=== PATIENT | male | born 1945 | race Caucasian/White ===

== ENCOUNTER 2022-03-30 21:41 | Emergency (ER) | payer MEDICARE, SELFPAY ==
[2022-03-30 22:01] VITALS: BP 143/87; PULSE 94; RESP 19; TEMP 36.8; O2SAT 96; BMI 28.5
--- NOTE | 2022-03-30 22:14 | W.ED.FALL ---
HPI - Fall General: Chief Complaint: Fall Stated Complaint: fall, right shoulder injury Time Seen by Provider: 03/30/22 22:09 Source: patient History of Present Illness: 76-year-old gentleman with multiple medical problems. He presents after a fall at home where he fell down 2-3 steps. He struck his right shoulder and his head he states. His head is hurting somewhat, and he has a history of headaches. He notes that his neck is hurting as well, but his most significant pain is his right shoulder. He says something is wrong or out of place he denies significant numbness or tingling. He notes that he felt pretty well prior to his fall. No syncope or presyncope prior to the episode. MD complaint: fall Onset (ago): minute(s) Fall from: standing and down stairs (#) (2-3) Fall witnessed: yes, by family Place fall occurred: home Loss of consciousness: None Prolonged down time: no Symptoms prior to fall: none Context: tripped/slipped Location of injury: head and neck Location of injury - extremities: Right: shoulder Quality: sharp, stabbing and aching Associated symptoms-after fall: Reports headache(s) and neck pain; Denies abdominal pain, chest pain, confusion, lightheadedness, short of breath or weakness Review of Systems Const: Denies: fever(s) Eyes: Denies: change in vision ENMT: Denies: throat pain Card: Denies: chest pain or lightheadedness Resp: Denies: dyspnea GI: Denies: abdominal pain Musc: Reports: neck pain Neuro: Reports: headache(s); Denies: confusion Physical Exam Const: COMMON NORMALS: no acute distress GENERAL APPEARANCE: cooperative and frail appearing (Mildly); not ill appearing HENMT: COMMON NORMALS: normocephalic, atraumatic and Normal external nose present HEAD & SCALP: normocephalic and atraumatic FACE & SINUS: normal facial exam and face symmetric NOSE: Normal external nose present Eye: COMMON NORMALS: Equal, round and reactive pupils present and EOMs intact bilaterally PUPIL: Yes Equal, round and reactive pupils present Neck/C-Spine: GENERAL: Yes trachea midline CERVICAL SPINE: Yes pain with cervical ROM Chest: CHEST: Yes Symmetrical chest wall rise Resp: COMMON NORMALS: normal respiratory effort, No retractions, No use of accessory muscles and clear to auscultation bilaterally AUSCULTATION: clear to auscultation bilaterally Cardio: COMMON NORMALS: regular rate and regular rhythm RATE: regular rate RHYTHM: regular rhythm GI: COMMON NORMALS: Normal to inspection, nondistended, normoactive bowel sounds present Extremity: NARRATIVE EXTREMITY EXAM: Exam the right shoulder reveals significant tenderness over the distal clavicle and anterior joint line. No significant deformity, although there is some swelling present. Pulses and sensation are intact distally. Neuro: KHUSHBOO COMA SCALE: document GCS findings [place] coma scale eye opening: Spontaneous [place] coma scale verbal response: Orientated [place] coma scale motor response: Obey commands [place]o coma scale total score: 15 SENSORY EXAM: Yes extremities (intact) Psych: COMMON NORMALS: speech normal SPEECH: Yes normal speech Skin: COMMON NORMALS: no rashes or lesions noted GENERAL SKIN EXAM: no rashes or lesions noted Course Vital Signs: Vital signs: Vital Signs Temperature 98.2 F 03/30/22 22:01 Pulse Rate 77 03/31/22 00:45 Respiratory Rate 16 03/31/22 00:45 Blood Pressure 161/99 03/31/22 00:45 Pulse Oximetry 93 03/31/22 00:45 Oxygen Delivery Me thod 03/30/22 22:01 MDM - Fall Medical Decision Making CTs are negative for acute injury. Shoulder x-ray shows an acute right distal clavicle fracture. He is placed in a sling. He is given pain control medication. 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 He was told to take his methadone first and he may take Percocet on top of this but only for severe pain. He was told to ice. Orthopedic follow-up. Case management has been consulted to hopefully make the gentleman appointment. Lab Data Radiology Impressions Cervical Spine CT 03/30/22 22:35 IMPRESSION: Negative for acute cervical spine injury. Head CT 03/30/22 22:35 IMPRESSION: Negative for acute intracranial abnormality. Shoulder X-Ray 03/30/22 22:35 IMPRESSION: Acute right distal clavicle fracture suspected. Discharge Plan Discharge Patient Disposition: Home Clinical Impression: Clavicle fracture Qualifiers: Encounter type: initial encounter Clavicle location: lateral end Fracture type: closed Fracture alignment: nondisplaced Laterality: right Qualified Code(s): S42.034A - Nondisplaced fracture of lateral end of right clavicle, initial encounter for closed fracture Condition: Stable Prescriptions: New Percocet 7.5-325 mg tablet 1 tab PO Q6H PRN (Reason: pain) Qty: 8 0RF Discharge Orders: Discharge ED (Routine); Ordered 03/31/22 Ordered By: Cheng Ho Referrals: Ekaterina Burns MD [Physician] - 4-7 days Taurus Causey DO [Primary Care Provider] - Patient Instructions: Clavicle Fracture (ED), Opioid Safety, Pain Management Activity Restrictions/Additional Instructions: Stay in sling until seen by orthopedics. Case management will help make a follow-up appointment for you. You should hear from them on Thursday or Thursday. Return for any problems. Use pain medication sparingly. Ice will help with pain as well. Coding Level of Care Code ED Securities Attorney for Juan C Lama
--- NOTE | 2022-03-30 22:35 | CTR_ITS ---
PROCEDURE INFORMATION: Exam: CT Head Without Contrast Exam date and time: 03/30/2022 11:26 PM Age: 76 years old Clinical indication: Injury or trauma; Fall; Blunt trauma (contusions or hematomas); Additional info: Fall hit head TECHNIQUE: Imaging protocol: Computed tomography of the head without contrast. Radiation optimization: All CT scans at this facility use at least one of these dose optimization techniques: automated exposure control; mA and/or kV adjustment per patient size (includes targeted exams where dose is matched to clinical indication); or iterative reconstruction. COMPARISON: CT head wo con* [id number] 08/17/2018 11:20 PM RADIATION DOSE METRICS: Total DLP (mGy-cm): 1052.58 FINDINGS: Brain: There is moderate cerebral atrophy. Negative for intracranial hemorrhage. Negative for intracranial mass.There is mild diffuse heterogeneity of the white matter attenuation, consistent with chronic white matter ischemic changes. Negative for midline shift of the brain. Cerebral ventricles: No ventriculomegaly. Paranasal sinuses: Visualized sinuses are unremarkable. No fluid levels. Mastoid air cells: Visualized mastoid air cells are well aerated. Bones/joints: Unremarkable. No acute fracture. Soft tissues: Unremarkable. CT/CT head wo con* [id number] IMPRESSION: Negative for acute intracranial abnormality.
--- NOTE | 2022-03-30 22:35 | CTR_ITS ---
PROCEDURE INFORMATION: Exam: CT Cervical Spine Without Contrast Exam date and time: 03/30/2022 11:32 PM Age: 76 years old Clinical indication: Injury or trauma; Fall; Blunt trauma; Additional info: Fall neck pain TECHNIQUE: Imaging protocol: Computed tomography of the cervical spine without contrast. Radiation optimization: All CT scans at this facility use at least one of these dose optimization techniques: automated exposure control; mA and/or kV adjustment per patient size (includes targeted exams where dose is matched to clinical indication); or iterative reconstruction. COMPARISON: CT head wo con* [id number] 03/30/2022 11:26 PM RADIATION DOSE METRICS: Total DLP (mGy-cm): 426.85 FINDINGS: Bones/joints: Negative for acute cervical spine fracture. Negative for traumatic malalignment. Fusion of C5-C6 vertebral bodies without complication. Severe disc disease of C6-C7. Diffuse facet joint arthropathy. Exaggerated cervical lordosis. Lungs: Lung apices are normal. Soft tissues: Unremarkable. CT/CT cervical spin wo con* [id number] IMPRESSION: Negative for acute cervical spine injury.
--- NOTE | 2022-03-30 22:35 | XRR_ITS ---
PROCEDURE INFORMATION: Exam: XR Right Shoulder Exam date and time: 03/30/2022 10:44 PM Age: 76 years old Clinical indication: Injury or trauma; Fall; Blunt trauma (contusions or hematomas); Shoulder; Right; Additional info: Fall R shoulder pain TECHNIQUE: Imaging protocol: Radiologic exam of the Right shoulder. Views: 2 or more views. COMPARISON: No relevant prior studies available. FINDINGS: Bones/joints: Fracture fragments on the undersurface of the distal right clavicle. Unremarkable acromioclavicular joint alignment. Osseous spurring of distal clavicle and acromion process. Right glenohumeral joint is unremarkable without dislocation. Soft tissues: Normal. XR/XR shoulder RT min 2V* [id number] IMPRESSION: Acute right distal clavicle fracture suspected.
[2022-03-30 23:56] VITALS: RESP 16; O2SAT 93
[2022-03-30] MEDS: ondansetron 4 MG Tablet PO (23:56)
[2022-03-30] MEDS: HYDROmorphone 1 mg/mL INJ 1 mL 2 MG IM (23:56)
[2022-03-31 00:04] VITALS: BP 167/82; PULSE 76; RESP 16; O2SAT 91
--- NOTE | 2022-03-31 00:25 | PC.NURSE ---
SLING APPLIED TO RIGHT SHOULDER PER PROVIDER ORDER.
[2022-03-31 00:45] VITALS: BP 161/99; PULSE 77; RESP 16; O2SAT 93
== END 2022-03-31 00:45 | disposition home or self-care (01) ==
PROVIDERS: Emergency Provider Emergency Medicine; PCP Internal Medicine
DX: S42.034A Nondisplaced fracture of lateral end of right clavicle, initial encounter for closed fracture (principal); W10.8XXA Fall (on) (from) other stairs and steps, initial encounter
CPT/HCPCS: 70450; 72125; 73030; 96372; 99285; J1170; Q0162

== ENCOUNTER → 2022-04-09 09:36 | Outpatient (BNVA) | payer MEDICARE, SELFPAY | PROVIDERS: PCP Internal Medicine; Visit Provider Nurse Practitioner Family | DX: W10.9XXA Fall (on) (from) unspecified stairs and steps, initial encounter (principal); S49.90XA Unspecified injury of shoulder and upper arm, unspecified arm, initial encounter; S42.034A Nondisplaced fracture of lateral end of right clavicle, initial encounter for closed fracture | CPT/HCPCS: 99214 ==

== ENCOUNTER 2024-04-19 00:31 | Observation (INO) | payer MEDICARE, SELFPAY ==
[2024-04-19] VITALS (23 sets, daily range): BP systolic 122–181; BP diastolic 43–104; PULSE 54–96; RESP 15–26; TEMP 36.4–36.9; O2SAT 1–100; BMI 26.4
--- NOTE | 2024-04-19 00:32 | XRR_ITS ---
PROCEDURE INFORMATION: Exam: XR Chest Exam date and time: 04/19/2024 1:06 AM Age: 78 years old Clinical indication: Shortness of breath; Prior surgery; Surgery date: 6+ months; Surgery type: Cspine TECHNIQUE: Imaging protocol: Radiologic exam of the chest. Views: 1 view. COMPARISON: CT cervical spin wo con* [id number] 03/30/2022 11:32 PM FINDINGS: Lungs: The lungs are hypoinflated which accentuates lung markings. Questionable mild pulmonary vascular congestion. Pleural spaces: Unremarkable. No pleural effusion. No pneumothorax. Heart/Mediastinum: The heart is enlarged. Diaphragm: Chronic elevation of the right diaphragm. Bones/joints: Unremarkable. XR/XR chest 1V portable [id number] IMPRESSION: Low lung volumes. Questionable mild pulmonary vascular congestion.
--- NOTE | 2024-04-19 00:33 | ECG_ITS ---
[facility] [employer] Test Date: 2024-04-19 Pat Name: Jonny Chino Department: Room: Gender: Male Anesthesiology Physician Assistant: : 1945 Requested By: Ginger Rivas Order Number: [id number] MD: Jim Sotomayor M.D. Measurements Intervals [place] Rate: 95 P: 35 NJ: 156 QRS: -50 QRSD: 118 T: 105 QT: 321 QTc: 405 Interpretive Statements SINUS RHYTHM LEFT AXIS DEVIATION [QRS AXIS < -30] PATTERN CONSISTENT WITH PULMONARY DISEASE MODERATE INTRAVENTRICULAR CONDUCTION DELAY [110+ ms QRS DURATION] MINIMAL VOLTAGE CRITERIA FOR LVH, CONSIDER NORMAL VARIANT [MEETS CRITERIA IN ONE OF: R(aVL), S(V1), R(V5), R(V5/V6)+S(V1)] ST DEVIATION AND MODERATE T-WAVE ABNORMALITY, CONSIDER LATERAL ISCHEMIA [-0.1+ mV T-WAVE IN I/aVL/V5/V6] No previous ECG available for comparison Electronically Signed On 04-19-2024 21:15:40 MULTIPLE LAUNCH ROCKET SYSTEM CREWMEMBER by Jim Sotomayor M.D. [email or web address]
--- NOTE | 2024-04-19 01:01 | ED_ITS ---
HPI - SOB/Dyspnea 2 General: Chief Complaint: Shortness of Breath/Dyspnea Stated Complaint: Low Oxygen Time Seen by Provider: 04/19/24 00:46 History of Present Illness: HPI Narrative: 78-year-old male with a history of hyper tension who presents emergency room with shortness of breath. Says has been feeling bad for about 3 days. He said he and his became ill after they went to a in another state. Congestion and cough initially. He says now become quite short of breath. Nursing reports that when walking down the [place] his oxygen saturations dropped down into the low 80s. He is placed on oxygen when I saw him he is 100% on 2 L. No wheeze on exam. Altered mental status. No focal motor deficits. No known fevers. No chest pain. No abdominal pain. No nausea or vomiting. No lower extremity swelling Related Data Previous Rx's Medication Instructions Recorded oxycodone-acetaminophen 7.5 mg-325 1 tab PO Q6H PRN pain #8 tabs 12/19/22 mg tablet (Percocet) Allergies Allergy/AdvReac Type Severity Reaction Status Date / Time Penicillins Allergy Unresponsiv Verified 04/19/24 00:44 e Review of Systems 2 Narrative: Constitutional symptoms: Negative except as documented in HPI. Skin symptoms: Negative except as documented in HPI. Eye symptoms: Negative except as documented in HPI. ENMT symptoms: Negative except as documented in HPI. Respiratory symptoms: Negative except as documented in HPI. Cardiovascular symptoms: Negative except as documented in HPI. Gastrointestinal symptoms: Negative except as documented in HPI. Genitourinary symptoms: Negative except as documented in HPI. Musculoskeletal symptoms: Negative except as documented in HPI. Neurologic symptoms: Negative except as documented in HPI. Psychiatric symptoms: Negative except as documented in HPI. Endocrine symptoms: Negative except as documented in HPI. Physical Exam 2 Narrative: EXAM NARRATIVE: General: Alert, no acute distress. Skin: Warm, dry. Head: Normocephalic, atraumatic. Neck: Supple, trachea midline. Eye: Extraocular movements are intact. Ears, nose, mouth and throat: mucosa moist. Cardiovascular: Regular, Normal peripheral perfusion. Respiratory: Lungs are clear to auscultation, mild tachypnea, mild increased work of breathing Gastrointestinal: Soft, Nontender, Non distended Musculoskeletal: Normal ROM, no deformity. Neurological: Alert and oriented, No focal neurological deficit observed. Psychiatric: Cooperative, appropriate mood & affect. Course 2 Vital Signs: Vital signs: Vital Signs Temperature 98.5 F 04/19/24 00:36 Pulse Rate 92 04/19/24 03:00 Respiratory Rate 17 04/19/24 03:00 Blood Pressure 164/71 04/19/24 03:00 Pulse Oximetry 91 04/19/24 03:00 Oxygen Delivery Me thod Nasal Cannula 04/19/24 03:00 Oxygen Flow Rate 1 04/19/24 03:00 MDM - SOB/Dyspnea Medical Decision Making Differential diagnosis for patient with shortness of breath includes but is not limited to and based on the above HPI, review of systems and physical exam: Pneumonia. Bronchitis. Asthma or COPD with acute exacerbation. Acute coronary syndrome / [place]. Pulmonary embolism. Anxiety. Congestive heart failure. Viral infections including influenza and Covid-19. Atrial fibrillation. Anxiety. Pleural effusion. Pneumothorax. Orders placed to evaluate differential diagnosis based on the above differential, HPI and physical exam EKG: Time 12:38 AM. Rate 95. Normal sinus rhythm, nonspecific ST-T changes, no ectopy, normal [place] & QRS intervals, This was reviewed and interpreted by myself the ER physician at 12:40 AM Lab Review: Laboratory results were reviewed and interpreted by myself the emergency room physician. No leukocytosis. No anemia. No renal failure. proBNP is mildly elevated 1000. No comparisons. Patient is COVID-positive. ABG 7.3 9/52/128 with a sat of 99% on 3 L nasal cannula. Chest x-ray: No acute process. No infiltrate. No pneumothorax. This was reviewed and interpreted by myself the emergency room physician. I also reviewed the radiology report. CT of the chest without contrast: No acute abnormalities. Interstitial lung changes. Coronary calcifications. This was reviewed and interpreted by myself the emergency room physician. I also reviewed the radiology report. I reviewed the patient's medical record. Reexamination: Patient continues to have hypoxemia if he is taken off of oxygen. No altered mental status. No focal motor deficits. Consultation: I spoke with Dr. Brock who is on-call for the hospitalist service who agrees to admission Assessment and plan: COVID-19 Hypoxemia ?IV Solu-Medrol and breathing treatments in the emergency room. -I discussed the patient with the hospitalist on-call who is admitting the patient. - Discussed findings and plan with patient. Answered any questions. - All laboratory values were reviewed and interpreted personally by myself, the ER physician - All imaging was reviewed and interpreted personally by myself, the ER physician. - Evaluation and treatment of this problem were appropriate in the emergency setting Lab Data 04/19/24 01:00 04/19/24 01:00 Labs/Radiology: Radiology Impressions Chest X-Ray 04/19/24 00:32 IMPRESSION: Low lung volumes. Questionable mild pulmonary vascular congestion. Chest CT 04/19/24 01:18 IMPRESSION: 1. No acute abnormality. 2. Chronic interstitial lung changes. 3. Atherosclerosis including coronary artery calcification. Laboratory Results WBC 7.35 10^3/uL (3.29-11.43) 04/19/24 01:00 RBC 3.98 10^6/uL (3.85-5.65) 04/19/24 01:00 Hgb 12.20 g/dL (11.27-16.99) 04/19/24 01:00 Hct 37.8 % (37-53) 04/19/24 01:00 MCV 95.0 fl (82-101) 04/19/24 01:00 MCH 30.7 pg (27-33) 04/19/24 01:00 MCHC 32.3 g/dL (30-55) 04/19/24 01:00 RDW 14.2 % (12.1-15.1) 04/19/24 01:00 Plt Count 160 10^3/cmm (157-399) 04/19/24 01:00 MPV 10.8 fL (7.4-10.4) H 04/19/24 01:00 Neut % (Auto) 78.0 % 04/19/24 01:00 Lymph % (Auto) 12.0 % 04/19/24 01:00 Jenkins % (Auto) 9.8 % 04/19/24 01:00 Eos % (Auto) 0.0 % 04/19/24 01:00 Baso % (Auto) 0.1 % 04/19/24 01:00 Neut # (Auto) 5.73 10^3/uL (1.8-7.7) 04/19/24 01:00 Lymph # (Auto) 0.9 10^3/uL (0.8-4.8) 04/19/24 01:00 Jenkins # (Auto) 0.7 10^3/uL (0.2-0.9) 04/19/24 01:00 Eos # (Auto) 0.0 10^3/uL (0.0-0.8) 04/19/24 01:00 Baso # (Auto) 0.0 10^3/uL (0.0-0.1) 04/19/24 01:00 Nucleated RBC % (auto) 0 % 04/19/24 01:00 Nucleated RBCs # 0.0 /100WBC 04/19/24 01:00 Specimen Type Arterial 04/19/24 01:42 Sample Site Brachial, right 04/19/24 01:42 ABG pH 7.39 (7.35-7.45) 04/19/24 01:42 ABG pCO2 51.7 mmHg (35-45) H 04/19/24 01:42 ABG pO2 128.0 mmHg (80.0-100.0) H 04/19/24 01:42 ABG PO2/FiO2 Ratio 400 04/19/24 01:42 ABG HCO3 31.4 mmol/L (22-26) H 04/19/24 01:42 ABG O2 Saturation > 99.1 04/19/24 01:42 ABG Base Excess 5.3 mmol/L (-2.0-2.0) H 04/19/24 01:42 Farhad Test Pos 04/19/24 01:42 A-a O2 Gradient 5.1 mmHg (5-10) 04/19/24 01:42 Hematocrit 36.5 % (42-52) L 04/19/24 01:42 Hgb O2 Saturation 98.2 % (95-100) 04/19/24 01:42 Carboxyhemoglobin 0.8 %THgb (0.4-20.1) 04/19/24 01:42 Methemoglobin 0.4 % (0.4-1.5) 04/19/24 01:42 Total Hemoglobin 11.9 g/dL (14-18) L 04/19/24 01:42 Sodium 138.0 mmol/L (131-143) 04/19/24 01:42 Potassium 4.3 mmol/L (3.5-5.0) 04/19/24 01:42 Glucose 126.0 mg/dL (70-115) H 04/19/24 01:42 Ionized Calcium 1.1 mmol/L (1.1-1.4) 04/19/24 01:42 O2 Delivery Device Nc 04/19/24 01:42 O2 Liters/Min 3.0 % 04/19/24 01:42 FiO2 32.0 % 04/19/24 01:42 Funds Transfer Clerk ID [email or web address] 04/19/24 01:42 Sodium 138 mmol/L (136-145) 04/19/24 01:00 Potassium 4.3 mmol/L (3.5-5.1) 04/19/24 01:00 Chloride 97 mmol/L (98-107) L 04/19/24 01:00 Carbon Dioxide 28 mmol/L (22-29) 04/19/24 01:00 Anion Gap 17.3 (5-19) 04/19/24 01:00 BUN 17 mg/dL (8-23) 04/19/24 01:00 Creatinine 1.0 mg/dL (0.7-1.2) 04/19/24 01:00 GFR Calculation Not Reportable 04/19/24 01:00 Glucose 139 mg/dL (65-115) H 04/19/24 01:00 Calculated Osmolality 290 mOsm/kg (285-295) 04/19/24 01:00 Lactic Acid 2.9 mmol/L (0.5-2.2) H 04/19/24 01:00 Lactic Acid (Sepsis) 0.9 mmol/L (0.5-2.2) 04/19/24 03:10 Calcium 8.6 mg/dL (8.5-10.5) 04/19/24 01:00 Total Bilirubin 0.4 mg/dL (0.15-1.2) 04/19/24 01:00 AST 26 U/L (0-40) 04/19/24 01:00 ALT 11 U/L (0-41) 04/19/24 01:00 Alkaline Phosphatase 62 U/L (40-130) 04/19/24 01:00 Troponin T Baseline 30 ng/L (0-15) H 04/19/24 01:00 Troponin T 120 Minute 33.62 ng/L (0-15) H 04/19/24 03:10 Delta Troponin T 3.62 ABS# (0-10) 04/19/24 03:10 C-Reactive Protein 95.1 mg/L (0.0-4.9) H 04/19/24 01:00 NT-Pro-B Natriuret Pep 1077 pg/mL (0-450) H 04/19/24 01:00 Total Protein 7.0 g/dL (6.6-8.7) 04/19/24 01:00 Albumin 4.0 g/dL (3.5-5.2) 04/19/24 01:00 Globulin 3.0 g/dL (1.3-4.6) 04/19/24 01:00 Adenovirus (PCR) Not detected (NOT DETECT) 04/19/24 00:54 C. pneumoniae DNA (PCR) Not detected (NOT DETECT) 04/19/24 00:54 Coronavirus 229E (PCR) Not detected (NOT DETECT) 04/19/24 00:54 Human Metapneumovir PCR Not detected (NOT DETECT) 04/19/24 00:54 Influenza A (H1) PCR Not detected (NOT DETECT) 04/19/24 00:54 Influ A (H1/09) PCR Not detected (NOT DETECT) 04/19/24 00:54 Influenza A (H3) PCR Not detected (NOT DETECT) 04/19/24 00:54 Influenza Type A (PCR) Not detected (NOT DETECT) 04/19/24 00:54 Influenza Type B (PCR) Not detected (NOT DETECT) 04/19/24 00:54 M. pneumoniae (PCR) Not detected (NOT DETECT) 04/19/24 00:54 Parainfluenza 1 (PCR) Not detected (NOT DETECT) 04/19/24 00:54 Parainfluenza 2 (PCR) Not detected (NOT DETECT) 04/19/24 00:54 Parainfluenza 3 (PCR) Not detected (NOT DETECT) 04/19/24 00:54 Parainfluenza 4 (PCR) Not detected (NOT DETECT) 04/19/24 00:54 RSV Type A (PCR) Not detected (NOT DETECT) 04/19/24 00:54 RSV Type B (PCR) Not detected (NOT DETECT) 04/19/24 00:54 Entero/Rhino (PCR) Not detected (NOT DETECT) 04/19/24 00:54 SARS-CoV-2 (PCR) Detected (NOT DETECT) A 04/19/24 00:54 All radiology interpretation(s) finalized by discharge Discharge Plan Discharge Patient Disposition: Admitted As Inpatient Clinical Impression: COVID-19, Hypoxemia Condition: Stable Coding Level of Care Code ED Software Verification Engineer for Juan C Lama
[2024-04-19 01:07] LABS: Basophils % 0.1 %; Hematocrit 37.8 % (37-53); Lymphocytes # 0.9 10^3/uL (0.8-4.8); Mean Corpuscular HGB Conc 32.3 g/dL (30-55); Mean Corpuscular Hemoglobin 30.7 pg (27-33); Mean Platelet Volume 10.8 fL (7.4-10.4); Monocytes # 0.7 10^3/uL (0.2-0.9); Monocytes % 9.8 %; Neutrophils # 5.73 10^3/uL (1.8-7.7); Nucleated Red Blood Cells % 0 %; Platelet Count 160 10^3/cmm (157-399); Red Blood Count 3.98 10^6/uL (3.85-5.65); Red Cell Distribution Width 14.2 % (12.1-15.1); White Blood Count 7.35 10^3/uL (3.29-11.43)
--- NOTE | 2024-04-19 01:18 | CTR_ITS ---
PROCEDURE INFORMATION: Exam: CT Chest Without Contrast; Diagnostic Exam date and time: 04/19/2024 1:46 AM Age: 78 years old Clinical indication: Shortness of breath and wheezing; Additional info: Abnormal chest xray TECHNIQUE: Imaging protocol: Diagnostic computed tomography of the chest without contrast. Radiation optimization: All CT scans at this facility use at least one of these dose optimization techniques: automated exposure control; mA and/or kV adjustment per patient size (includes targeted exams where dose is matched to clinical indication); or iterative reconstruction. COMPARISON: CR (CHEST, ) 04/19/2024 1:06 AM RADIATION DOSE METRICS: Total DLP (mGy-cm): 540.56 FINDINGS: Lungs: Mild bilateral diffuse subpleural reticulation suggesting chronic interstitial lung changes. No acute lung opacities. Pleural spaces: Unremarkable. No pneumothorax. No pleural effusion. Heart: Unremarkable. No cardiomegaly. No pericardial effusion. Lymph nodes: Unremarkable. No enlarged lymph nodes. Vasculature: Calcific plaque involves the thoracic aorta and coronary arteries. Diaphragm: There is chronic elevation of the right diaphragm. A small hiatal hernia present. Bones/joints: Mild degenerative changes involve the spine. Soft tissues: Unremarkable. CT/CT chest wo con [id number] IMPRESSION: 1. No acute abnormality. 2. Chronic interstitial lung changes. 3. Atherosclerosis including coronary artery calcification.
[2024-04-19 01:30] LABS: Lactic Sepsis W/Reflex 2.9 mmol/L (0.5-2.2)
[2024-04-19 01:40] LABS: Alanine Aminotransferase 11 U/L (0-41); Alkaline Phosphatase 62 U/L (40-130); Anion Gap 17.3 (5-19); Aspartate Amino Transferase 26 U/L (0-40); Blood Urea Nitrogen 17 mg/dL (8-23); C Reactive Protein 95.1 mg/L (0.0-4.9); Calcium 8.6 mg/dL (8.5-10.5); Carbon Dioxide 28 mmol/L (22-29); Chloride 97 mmol/L (98-107); Creatinine Clr Calc Pharmacy 70.8028; Glucose 139 mg/dL (65-115); NT Pro B Type Natriuretic Pept 1077 pg/mL (0-450); Osmolality Calculated 290 mOsm/kg (285-295); Potassium 4.3 mmol/L (3.5-5.1); Sodium 138 mmol/L (136-145); Total Bilirubin 0.4 mg/dL (0.15-1.2)
[2024-04-19 01:47] LABS: ABG PCO2 51.7 mmHg (35-45); ABG PH Result 7.39 (7.35-7.45); Alveolar-Arterial Oxygen Gradi 5.1 mmHg (5-10); Arterial Blood Gas Hematocrit 36.5 % (42-52); Base Excess ABG 5.3 mmol/L (-2.0-2.0); Blood Gas Allen Test Pos; Blood Gas Sample Site Brachial, right; Blood Gas Sample Type Arterial; Carboxyhemoglobin 0.8 %THgb (0.4-20.1); HCO3 ABG 31.4 mmol/L (22-26); HGB O2 Sat 98.2 % (95-100); Ionized Calcium Level - ABG 1.1 mmol/L (1.1-1.4); Methemoglobin 0.4 % (0.4-1.5); Oxygen Device NC; Oxygen Saturation ABG > 99.1; PO2 FiO2 Ratio Arterial Blood 400; Potassium Level - ABG 4.3 mmol/L (3.5-5.0); Total Hemoglobin 11.9 g/dL (14-18)
[2024-04-19 01:54] LABS: Troponin(5th) Baseline 30 ng/L (0-15)
[2024-04-19] MEDS: acetaminophen 500 mg Tablet 1000 MG PO (02:12)
--- NOTE | 2024-04-19 02:33 | ECG_ITS ---
[facility] Test Date: 2024-04-19 Pat Name: Jonny Chino Department: Room: Gender: Male Heating Operators Engineer: : 1945 Requested By: Ginger Rivas Order Number: [id number] MD: Jim Sotomayor M.D. Measurements Intervals [place] Rate: 88 P: 70 NJ: 151 QRS: -26 QRSD: 116 T: 116 QT: 342 QTc: 415 Interpretive Statements SINUS RHYTHM WITH OCCASIONAL VENTRICULAR PREMATURE COMPLEXES LEFT VENTRICULAR HYPERTROPHY AND ST-T CHANGE [VOLTAGE CRITERIA PLUS ST/T ABNORMALITY] Compared to ECG 04/19/2024 00:38:24 Ventricular premature complex(es) now present ST (T wave) deviation now present Left-axis deviation no longer present Intraventricular conduction delay no longer present T-wave abnormality no longer present Possible ischemia no longer present Electronically Signed On 04-19-2024 21:25:20 TICKET COLLECTOR by Jim Sotomayor M.D. [email or web address]
[2024-04-19 02:46] LABS: Adenovirus Not Detected (NOT DETECT); Chlamydia Pneumoniae Not Detected (NOT DETECT); Coronavirus 229E,HKU1,NL63,OC4 Not Detected (NOT DETECT); Human Metapneumovirus Not Detected (NOT DETECT); Human Rhinovirus/Enterovirus Not Detected (NOT DETECT); Influenza A Not Detected (NOT DETECT); Influenza A H1 Not Detected (NOT DETECT); Influenza A H1-2009 Not Detected (NOT DETECT); Influenza A H3 Not Detected (NOT DETECT); Influenza B Not Detected (NOT DETECT); Mycoplasma Pneumoniae Not Detected (NOT DETECT); Parainfluenza Virus Type 1 Not Detected (NOT DETECT); Parainfluenza Virus Type 2 Not Detected (NOT DETECT); Parainfluenza Virus Type 3 Not Detected (NOT DETECT); Parainfluenza Virus Type 4 Not Detected (NOT DETECT); Respiratory Syncytial Virus A Not Detected (NOT DETECT); Respiratory Syncytial Virus B Not Detected (NOT DETECT)
[2024-04-19 02:52] LABS: Reflex Lactate Order REFLEX LACTIC ORDERD
[2024-04-19 02:54] LABS: SARS-COV-2 Detected (NOT DETECT)
[2024-04-19] MEDS: methylPREDNISolone sod succ 125 mg/2 mL INJ IVP (03:25)
[2024-04-19 03:33] LABS: Troponin 5 2HR 33.62 ng/L (0-15); Troponin 5 2HR Delta 3.62 ABS# (0-10)
[2024-04-19 03:34] LABS: Lactic Acid level (Lactate) 0.9 mmol/L (0.5-2.2)
[2024-04-19] MEDS: ipratropium-albuterol 3 mL Neb INHALATION (04:43)
[2024-04-19] MEDS: albuterol 2.5 mg/3 mL Neb INHALATION (04:43)
--- NOTE | 2024-04-19 05:38 | P.HP_ITS ---
Providers/Chief Complaint 2 Admitting Physician: Jovon Brock MD Primary Care Provider: Osiel Elliott MD Chief Complaint: Low Oxygen History of Present Illness Jonny Chino is a 78 year old male presenting with chief complaint of shortness of breath generalized weakness and fatigue. Patient is endorsing he has been sick for last 3 to 4 days, he has not noticed any fever or chest pain. He has been noticing productive cough, green sputum production generalized weakness and fatigue. No significant past medical history, patient is endorsing seeing PCP annually. Patient does not have any history of DE, CHF, coronary disease diabetes. Lives with his . In the ER he has been diagnosed with COVID-19 requiring 2 L of oxygen. Afebrile. Hypertensive. Review of Systems 2 Const: Reports: chills; Denies: fever(s) Eyes: Denies: change in vision ENMT: Denies: throat pain Card: Denies: chest pain Resp: Reports: dyspnea GI: Denies: abdominal pain Medications/Allergies Home Medications Medication Instructions Recorded Confirmed Last Taken Type atorvastatin 40 mg tablet 40 mg PO DAILY 04/19/24 04/19/24 Unknown History lisinopril 20 mg tablet 20 mg PO DAILY 04/19/24 04/19/24 Unknown History methadone 10 mg tablet 10 mg PO QID 04/19/24 04/19/24 Unknown History omeprazole 20 mg capsule,delayed 20 mg PO DAILY 04/19/24 04/19/24 Unknown History release sildenafil 100 mg tablet 100 mg PO DAILY 04/19/24 04/19/24 Unknown History tadalafil 20 mg tablet 20 mg PO DAILY 04/19/24 04/19/24 Unknown History venlafaxine 75 mg capsule,extended 75 mg PO DAILY 04/19/24 04/19/24 Unknown History release 24 hr Allergies Allergy/AdvReac Type Severity Reaction Status Date / Time Penicillins Allergy Unresponsiv Verified 04/19/24 00:44 e PFSH Acute 2 PFSH: Medical History (Updated 04/19/24 @ 07:30 by Jovon Brock MD) Clavicle fracture Vitals/I&O/Wt Last Vital Signs Temp 98.5 F 04/19/24 00:36 Pulse 70 04/19/24 04:48 Resp 18 04/19/24 04:48 BP 164/71 04/19/24 03:00 Pulse Ox 95 01/07/25 04:48 O2 Del Method Nasal Cannula 04/19/24 05:02 O2 Flow Rate 1 04/19/24 03:00 Weight last 48 hrs Weight 86.183 kg Physical Exam 2 Narrative: Patient looks euvolemic Rhonchi with crackles Mild wheeze Currently on 2 L S1, S2 Hemodynamically stable Pleasant cooperative Sitting at the bedside Nonfocal neuroexam Abdomen soft GCS 15 AO x 4 Data 04/19/24 01:00 04/19/24 01:00 Micro: Microbiology 04/19/24 01:09 Blood Culture - Preliminary Blood SPECIMEN COLLECTED 04/19/24 01:00 Blood Culture - Preliminary Blood SPECIMEN COLLECTED A&P Assessment and plan (1) COVID-19: (2) Hypoxemia: Plan COVID-19 related hypoxia Currently requiring 2 L Start remdesivir and Decadron Check B12 TSH and hemoglobin A1c Check D-dimer Cardiac diet Hypertension: Continue lisinopril Full code DVT prophylaxis: Lovenox Chronic opioid dependence takes methadone 20 mg twice daily Attestations 2 Medical Necessity Statement*: Anticipating discharge within 48 hours Diagnoses COVID-19 U07.1 Hypoxemia R09.02
--- NOTE | 2024-04-19 07:34 | USCV_ITS ---
Jonny Chino Age: 78 Gender: M : 1945 Exam Date: 04/19/2024 15:54 Ordering Phys: Jovon Brock MD Technologist: [place] [facility] [place]: covid,sob BP: 139 / 81 HR: 65 Rhythm: Sinus Technical Quality: Adequate MEASUREMENTS (Male / Female) Normal Values 2D ECHO LVOT Diameter 2.2 cm LV Ejection Fraction MOD 4C 58.2 % LV Ejection Fraction MOD 2C 67.3 % LV Ejection Fraction 2C AL 66.0 % LA Diameter 4.0 cm RA Systolic Volume 4C AL 30.7 ml RA Systolic Volume 4C MOD 29.5 ml LA Sys Volume AL 69.8 cm cubed LA Sys Volume Index AL 33.2 cm cubed/m squared Aorta at Sinotubular Diameter 2.2 cm M-MODE LA Ao Ratio MM 1.8 AV Cusp Separation MM 1.7 cm DOPPLER AV Peak Velocity 168.0 cm/s LVOT Peak Velocity 131.0 cm/s AV Area Cont Eq vti 3.2 cm squared AV Area Cont Eq pk 2.9 cm squared MV Peak Velocity 88.0 cm/s MV Area PHT 3.2 cm squared Mitral E to A Ratio 0.7 TV Peak E Velocity 63.0 cm/s PV Peak Velocity 133.5 cm/s FINDINGS Left Ventricle Normal left ventricular size and systolic function, EF 65%. Grade I/IV diastolic dysfunction (abnormal relaxation filling pattern), normal to mildly elevated filling pressures. Right Ventricle Normal right ventricular size and systolic function. Right Atrium Mildly increased right atrial size. Left Atrium Moderately increased left atrial size. Mitral Valve Trace mitral valve regurgitation. Aortic Valve No gross abnormalities noted no gross abnormalities noted Tricuspid Valve No gross abnormalities noted Pulmonic Valve Mild pulmonary valve regurgitation. Pericardium No pericardial effusion. Aorta Normal ascending aorta dimension. IVC The inferior vena cava appears normal. CONCLUSIONS Normal left ventricular size and systolic function, EF 65%. Grade I/IV diastolic dysfunction (abnormal relaxation filling pattern), normal to mildly elevated filling pressures. Mildly increased right atrial size. Moderately increased left atrial size. Trace mitral valve regurgitation. Mild pulmonary valve regurgitation. There is no pericardial effusion. There are no intracardiac masses. Comparison with the previous study is difficult because of the difference in the technical quality. Dr Mary David MD FACC (Electronically Signed) Final Date: 19 April 2024 20:20 S
[2024-04-19 08:09] LABS: Estmated Average Glucose 134; Hemoglobin A1C 6.3 % (4.0-6.0)
[2024-04-19 08:26] LABS: Thyroid Stimulating Hormone 1.64 uIU/mL (0.27-4.20); Vitamin B12 406 pg/mL (232-1245)
[2024-04-19] MEDS: dexamethasone 4 mg Tablet 6 MG PO (08:48)
[2024-04-19] MEDS: enoxaparin 40 mg/0.4 mL Syringe SUBCUT (08:48)
[2024-04-19] MEDS: FUROsemide 10 mg/mL SDV 2mL 20 MG IVP (08:48)
[2024-04-19] MEDS: methadone 10 mg Tablet PO ×3 (08:49→20:50)
[2024-04-19] MEDS: lisinopril 20 mg Tablet PO (08:50)
[2024-04-19 08:56] LABS: Troponin 5 6HR 28.22 ng/L (0-15)
[2024-04-19 08:59] LABS: Troponin 5 6HR Delta -1.78 ng/L (0-12)
--- NOTE | 2024-04-19 11:36 | ECG_ITS ---
[facility]a [facility] Test Date: 2024-04-19 Pat Name: Jonny Chino Department: Room: 257 Gender: Male [employer] Presser: : 1945 Requested By: Ginger Rivas Order Number: [id number] Andre MD: Jim Sotomayor M.D. Measurements Intervals [place] Rate: 69 P: 39 GA: 153 QRS: -38 QRSD: 123 T: 60 QT: 402 QTc: 431 Interpretive Statements SINUS RHYTHM WITH FREQUENT VENTRICULAR PREMATURE COMPLEXES LEFT AXIS DEVIATION [QRS AXIS < -30] MODERATE INTRAVENTRICULAR CONDUCTION DELAY [105+ ms QRS DURATION, 80+ ms Q/S IN V1/V2, NO Q AND 60+ ms R IN I/aVL/V5/V6] MODERATE VOLTAGE CRITERIA FOR LVH, CONSIDER NORMAL VARIANT [MEETS CRITERIA IN ONE OF: R(aVL), S(V1), R(V5), R(V5/V6)+S(V1)] NONSPECIFIC T-WAVE ABNORMALITY Compared to ECG 04/19/2024 03:02:11 Left-axis deviation now present Intraventricular conduction delay now present T-wave abnormality now present ST (T wave) deviation no longer present Electronically Signed On 04-19-2024 21:20:24 HOSPITAL SECRETARY by Jim Sotomayor M.D. [email or web address]
--- NOTE | 2024-04-19 12:31 | PC.NURSE ---
Patient refused SCDs. States he gets up and moves around. Continent, walks to restroom
--- NOTE | 2024-04-19 15:43 | P.MISC_ITS ---
Miscellaneous Note Purpose of Documentation: Overnight labs and H&P reviewed. CT chest showing bilateral pneumonitis co nsistent with COVID-19 infection. Elevated CRP. Will trend with a.m. labs. Continue dexamethasone 6 mg daily and remdesivir for treatment. Continue his home medications.
--- NOTE | 2024-04-19 16:42 | PC.NURSE ---
Dr. Zavala notified 1300 dose missed on patient of methadone. Dr. Zavala stated give 1700.
[2024-04-19] MEDS: acetaminophen 500 mg Tablet PO (21:07)
[2024-04-20] VITALS (9 sets, daily range): BP systolic 117–171; BP diastolic 48–81; PULSE 53–64; RESP 16–19; TEMP 36.3–36.6; O2SAT 93–97
[2024-04-20] MEDS: lisinopril 10 mg Tablet PO (01:30)
[2024-04-20 06:51] LABS: Hematocrit 35.1 % (37-53); Lymphocytes % 13.9 %; Mean Corpuscular HGB Conc 32.2 g/dL (30-55); Mean Corpuscular Hemoglobin 30.4 pg (27-33); Mean Corpuscular Volume 94.4 fl (82-101); Mean Platelet Volume 10.8 fL (7.4-10.4); Monocytes # 0.8 10^3/uL (0.2-0.9); Monocytes % 10.9 %; Neutrophils # 5.27 10^3/uL (1.8-7.7); Neutrophils % 74.9 %; Nucleated Red Blood Cells % 0 %; Platelet Count 145 10^3/cmm (157-399); Red Blood Count 3.72 10^6/uL (3.85-5.65); White Blood Count 7.04 10^3/uL (3.29-11.43)
[2024-04-20] MEDS: FUROsemide 10 mg/mL SDV 2mL 20 MG IVP (06:59)
[2024-04-20] MEDS: enoxaparin 40 mg/0.4 mL Syringe SUBCUT (06:59)
[2024-04-20] MEDS: remdesivir 100 MG in sodium chloride 0.9% (100 ml) 80 ML IV (06:59)
[2024-04-20 07:11] LABS: Alanine Aminotransferase 11 U/L (0-41); Albumin Level 3.1 g/dL (3.5-5.2); Alkaline Phosphatase 53 U/L (40-130); Anion Gap 14.2 (5-19); Aspartate Amino Transferase 31 U/L (0-40); Blood Urea Nitrogen 24 mg/dL (8-23); C Reactive Protein 52.4 mg/L (0.0-4.9); Calcium 8.3 mg/dL (8.5-10.5); Carbon Dioxide 30 mmol/L (22-29); Chloride 96 mmol/L (98-107); Creatinine Clr Calc Pharmacy 77.7916; Globulin 2.9 g/dL (1.3-4.6); Glucose 121 mg/dL (65-115); Osmolality Calculated 287 mOsm/kg (285-295); Potassium 4.2 mmol/L (3.5-5.1); Sodium 136 mmol/L (136-145); Total Bilirubin 0.3 mg/dL (0.15-1.2)
[2024-04-20 07:15] LABS: Magnesium 2.1 mg/dL (1.7-2.3)
[2024-04-20] MEDS: dexamethasone 4 mg Tablet 6 MG PO (09:17)
[2024-04-20] MEDS: methadone 10 mg Tablet PO ×2 (09:19→12:26)
[2024-04-20] MEDS: atorvastatin 40 mg Tablet PO (09:19)
[2024-04-20] MEDS: venlafaxine ER (24HR) 75 mg Capsule PO (09:19)
[2024-04-20] MEDS: pantoprazole DR 40 mg Tablet PO (09:20)
[2024-04-20] MEDS: lisinopril 20 mg Tablet PO (09:23)
--- NOTE | 2024-04-20 09:38 | PC.CHAP ---
Pastoral Care Encounter/Spiritual Assessment Type of Contact [] Declined retirement plan counselor visit [] Patient/Family/Request visit [] Outpatient visit [] Follow-up visit [] Physician referral [] Code/Alert [] Routine visit [] Staff referral [] Actively dying [] Patient sleeping [] Family support [] [] Out of room [] Palliative care [] [] Receiving care in room [] Pre-surgical visit [] Trauma [] Long length of stay [] ICU visit [x] Other:Contact precautions. No visit. Relational/Emotional Strength [] Patient feels connected with others/family/visitors/staff [] Distress [] Loneliness/isolation [] Abandonment Spirituality of Patient [] Person of Kimberly [] Attends Voodoo of their Kimberly [] Believes in Prayer [] Reads Bible or Quaker materials [] There are Spiritual issues to be addressed Engineering Inspector Interventions [] Prayer [] Active listening [] Non-anxious presence [] Spiritual/emotional support [] Crisis/trauma care [] Spiritual counseling [] Bereavement support [] Provided bereavement packet [] Provided Bible/devotional materials [] Provided toy/stuffed animal, coloring book to patient or family member [] Provided Communion [] Anointing/[place] [] Salvation [] Completed spiritual assessment [] Other: Impact on Illness or Injury [] Angry [] Fearful [] Anxious [] Often cries [] Exhaustion [] Unable to work [] Unable to attend scientology [] Unable to walk/stand [] Unable to read [] Unable to drive [] Unable to eat/drink [] Unable to sleep [] Unable to be with family [] Patient intubated [] Other: Summary Time spent with patient
--- NOTE | 2024-04-20 13:31 | PC.NURSE ---
Discussed discharge with patient and spouse. Discussed new medications and stopped medications. Educated patient if Oxygen levels decrease come to the emergency room. Patient and spouse verbalized understanding.
--- NOTE | 2024-04-20 13:32 | PM.DCS ---
Discharge Providers Date of Admission: 04/19/24 07:33 Date of Discharge: April 20, 2024 Attending Provider at Admission: Jovon Brock MD Attending Provider at Discharge: Sulema Zavala MD Primary Care Provider: Osiel Elliott MD Diagnoses at Discharge Discharge Diagnosis (1) COVID-19: Status: Acute (2) Hypoxemia: Status: Acute Reason for Visit Reason for Visit: Low Oxygen Hospital Course Hospital Course 78 year old male presenting with chief complaint of shortness of breath generalized weakness and fatigue. He has been diagnosed with COVID-19 requiring 2 L of oxygen. He received treatment with iv remdisivir, dexamtheasone. He improved quickly and as been weaned doff 02 today. He is discharged with recommendations to continue po dexamthesone and Paxlovid post discharge over next 5 days. CTA was negative for PE Physical Exam Narrative: General: No acute distress, AO x3 HEENT: PERRLA, pupils bilaterally equal and reactive, pallors not present Chest: Normal vesicular breath sounds, no added sounds, equal good air entry bilaterally CVS: S1-S2 regular, no murmurs, no tachycardia, no gallops, no rubs Abdomen: Soft, nontender, no organomegaly, bowel sounds present Neuro: No focal deficits, no facial deformity, AO x3, power 5/5 in all limbs Discharge Data Studies Completed and Pending Completed Studies During Hospitalization Category Date Time Status CT chest wo con [id number] Stat Cat Scan 04/19/24 01:18 Completed XR chest 1V portable [id number] Stat Exams 04/19/24 00:32 Completed CV. echo complete* [id number] Routine Ultrasound 04/19/24 07:34 Completed Pending at discharge Category Date Time Status Blood Culture Stat Lab 04/19/24 01:00 Results Radiology Impressions Chest X-Ray 04/19/24 00:32 IMPRESSION: Low lung volumes. Questionable mild pulmonary vascular congestion. Chest CT 04/19/24 01:18 IMPRESSION: 1. No acute abnormality. 2. Chronic interstitial lung changes. 3. Atherosclerosis including coronary artery calcification. Laboratory Results WBC 7.04 10^3/uL (3.29-11.43) 04/20/24 06:03 RBC 3.72 10^6/uL (3.85-5.65) L 04/20/24 06:03 Hgb 11.30 g/dL (11.27-16.99) 04/20/24 06:03 Hct 35.1 % (37-53) L 04/20/24 06:03 MCV 94.4 fl (82-101) 04/20/24 06:03 MCH 30.4 pg (27-33) 04/20/24 06:03 MCHC 32.2 g/dL (30-55) 04/20/24 06:03 RDW 14.0 % (12.1-15.1) 04/20/24 06:03 Plt Count 145 10^3/cmm (157-399) L 04/20/24 06:03 MPV 10.8 fL (7.4-10.4) H 04/20/24 06:03 Neut % (Auto) 74.9 % 04/20/24 06:03 Lymph % (Auto) 13.9 % 04/20/24 06:03 [place] % (Auto) 10.9 % 04/20/24 06:03 Eos % (Auto) 0.0 % 04/20/24 06:03 Baso % (Auto) 0.0 % 04/20/24 06:03 Neut # (Auto) 5.27 10^3/uL (1.8-7.7) 04/20/24 06:03 Lymph # (Auto) 1.0 10^3/uL (0.8-4.8) 04/20/24 06:03 [place] # (Auto) 0.8 10^3/uL (0.2-0.9) 04/20/24 06:03 Eos # (Auto) 0.0 10^3/uL (0.0-0.8) 04/20/24 06:03 Baso # (Auto) 0.0 10^3/uL (0.0-0.1) 04/20/24 06:03 Nucleated RBC % (auto) 0 % 04/20/24 06:03 Nucleated RBCs # 0.0 /100WBC 04/20/24 06:03 Specimen Type Arterial 04/19/24 01:42 Sample Site Brachial, right 04/19/24 01:42 ABG pH 7.39 (7.35-7.45) 04/19/24 01:42 ABG pCO2 51.7 mmHg (35-45) H 04/19/24 01:42 ABG pO2 128.0 mmHg (80.0-100.0) H 04/19/24 01:42 ABG PO2/FiO2 Ratio 400 04/19/24 01:42 ABG HCO3 31.4 mmol/L (22-26) H 04/19/24 01:42 ABG O2 Saturation > 99.1 04/19/24 01:42 ABG Base Excess 5.3 mmol/L (-2.0-2.0) H 04/19/24 01:42 Farhad Test Pos 04/19/24 01:42 A-a O2 Gradient 5.1 mmHg (5-10) 04/19/24 01:42 Hematocrit 36.5 % (42-52) L 04/19/24 01:42 Hgb O2 Saturation 98.2 % (95-100) 04/19/24 01:42 Carboxyhemoglobin 0.8 %THgb (0.4-20.1) 04/19/24 01:42 Methemoglobin 0.4 % (0.4-1.5) 04/19/24 01:42 Total Hemoglobin 11.9 g/dL (14-18) L 04/19/24 01:42 Sodium 138.0 mmol/L (131-143) 04/19/24 01:42 Potassium 4.3 mmol/L (3.5-5.0) 04/19/24 01:42 Glucose 126.0 mg/dL (70-115) H 04/19/24 01:42 Ionized Calcium 1.1 mmol/L (1.1-1.4) 04/19/24 01:42 O2 Delivery Device Nc 04/19/24 01:42 O2 Liters/Min 3.0 % 04/19/24 01:42 FiO2 32.0 % 04/19/24 01:42 Filling Technician ID [email or web address] 04/19/24 01:42 Sodium 136 mmol/L (136-145) 04/20/24 06:03 Sodium Cancelled 04/20/24 06:03 Potassium 4.2 mmol/L (3.5-5.1) 04/20/24 06:03 Potassium Cancelled 04/20/24 06:03 Chloride 96 mmol/L (98-107) L 04/20/24 06:03 Chloride Cancelled 04/20/24 06:03 Carbon Dioxide 30 mmol/L (22-29) H 04/20/24 06:03 Carbon Dioxide Cancelled 04/20/24 06:03 Anion Gap 14.2 (5-19) 04/20/24 06:03 Anion Gap Cancelled 04/20/24 06:03 BUN 24 mg/dL (8-23) H 04/20/24 06:03 BUN Cancelled 04/20/24 06:03 Creatinine 0.9 mg/dL (0.7-1.2) 04/20/24 06:03 Creatinine Cancelled 04/20/24 06:03 GFR Calculation Cancelled 04/20/24 06:03 GFR Calculation Not Reportable 04/20/24 06:03 Glucose 121 mg/dL (65-115) H 04/20/24 06:03 Glucose Cancelled 04/20/24 06:03 Estimat Average Glucose 134 04/19/24 01:00 Hemoglobin A1c 6.3 % (4.0-6.0) H 04/19/24 01:00 Calculated Osmolality 287 mOsm/kg (285-295) 04/20/24 06:03 Calculated Osmolality Cancelled 04/20/24 06:03 Lactic Acid 2.9 mmol/L (0.5-2.2) H 04/19/24 01:00 Lactic Acid (Sepsis) 0.9 mmol/L (0.5-2.2) 04/19/24 03:10 Calcium 8.3 mg/dL (8.5-10.5) L 04/20/24 06:03 Calcium Cancelled 04/20/24 06:03 Magnesium 2.1 mg/dL (1.7-2.3) 04/20/24 06:03 Total Bilirubin 0.3 mg/dL (0.15-1.2) 04/20/24 06:03 AST 31 U/L (0-40) 04/20/24 06:03 ALT 11 U/L (0-41) 04/20/24 06:03 Alkaline Phosphatase 53 U/L (40-130) 04/20/24 06:03 Troponin T Baseline 30 ng/L (0-15) H 04/19/24 01:00 Troponin T 120 Minute 33.62 ng/L (0-15) H 04/19/24 03:10 Delta Troponin T 3.62 ABS# (0-10) 04/19/24 03:10 Troponin T Hi Sens 6Hr 28.22 ng/L (0-15) H 04/19/24 08:17 Troponin T Hi Sens 6Hr Delta -1.78 ng/L (0-12) L 04/19/24 08:17 C-Reactive Protein 52.4 mg/L (0.0-4.9) H 04/20/24 06:03 NT-Pro-B Natriuret Pep 1077 pg/mL (0-450) H 04/19/24 01:00 Total Protein 6.0 g/dL (6.6-8.7) L 04/20/24 06:03 Albumin 3.1 g/dL (3.5-5.2) L 04/20/24 06:03 Globulin 2.9 g/dL (1.3-4.6) 04/20/24 06:03 Vitamin B12 406 pg/mL (232-1245) 04/19/24 01:00 TSH 1.64 uIU/mL (0.27-4.20) 04/19/24 01:00 Adenovirus (PCR) Not detected (NOT DETECT) 04/19/24 00:54 C. pneumoniae DNA (PCR) Not detected (NOT DETECT) 04/19/24 00:54 Coronavirus 229E (PCR) Not detected (NOT DETECT) 04/19/24 00:54 Human Metapneumovir PCR Not detected (NOT DETECT) 04/19/24 00:54 Influenza A (H1) PCR Not detected (NOT DETECT) 04/19/24 00:54 Influ A (H1/09) PCR Not detected (NOT DETECT) 04/19/24 00:54 Influenza A (H3) PCR Not detected (NOT DETECT) 04/19/24 00:54 Influenza Type A (PCR) Not detected (NOT DETECT) 04/19/24 00:54 Influenza Type B (PCR) Not detected (NOT DETECT) 04/19/24 00:54 M. pneumoniae (PCR) Not detected (NOT DETECT) 04/19/24 00:54 Parainfluenza 1 (PCR) Not detected (NOT DETECT) 04/19/24 00:54 Parainfluenza 2 (PCR) Not detected (NOT DETECT) 04/19/24 00:54 Parainfluenza 3 (PCR) Not detected (NOT DETECT) 04/19/24 00:54 Parainfluenza 4 (PCR) Not detected (NOT DETECT) 04/19/24 00:54 RSV Type A (PCR) Not detected (NOT DETECT) 04/19/24 00:54 RSV Type B (PCR) Not detected (NOT DETECT) 04/19/24 00:54 Entero/Rhino (PCR) Not detected (NOT DETECT) 04/19/24 00:54 SARS-CoV-2 (PCR) Detected (NOT DETECT) A 04/19/24 00:54 Vitals Last Vital Signs Temp 97.6 F 04/20/24 12:54 Pulse 64 04/20/24 12:54 Resp 17 04/20/24 12:54 BP 137/48 04/20/24 12:54 Pulse Ox 93 04/20/24 12:54 O2 Del Method Room Air 04/20/24 12:54 O2 Flow Rate 1 04/20/24 09:22 Discharge Plan Discharge Patient Disposition: Home Condition: Stable Prescriptions: New dexamethasone 4 mg Tablet 6 mg PO DAILY 5 Days Qty: 5 0RF Paxlovid 300 mg (150 mg x 2)-100 mg tablets,dose pack See Rx Instructions .ROUTE .COMPLEX Qty: 30 0RF Rx Instructions: take TWO 150 mg tablets of nirmatrelvir with ONE 100 mg tablet of ritonavir twice daily for 5 days Continued atorvastatin 40 mg tablet 40 mg PO DAILY venlafaxine 75 mg capsule,extended release 24hr 75 mg PO DAILY methadone 10 mg tablet 10 mg PO QID lisinopril 20 mg tablet 20 mg PO DAILY omeprazole 20 mg capsule,delayed release(DR/EC) 20 mg PO DAILY tadalafil 20 mg tablet 20 mg PO DAILY Discontinued sildenafil 100 mg tablet 100 mg PO DAILY Discharge Orders: Discharge Order (Routine); Ordered 04/20/24 Ordered By: Sulema Zavala Referrals: Osiel Elliott MD [Primary Care Provider] - 04/27/24 10:45 am Patient Instructions: Dexamethasone (By mouth), Nirmatrelvir/Ritonavir (By mouth), COVID-19 (Coronavirus Disease 2019) (GEN), Opioid Safety Discharge Attestations Time Spent in Discharge Care*: greater than 30 min Quality Metrics Clinical Quality Measures [ No reported AMI, CVA or VTE this stay] Coding Level of Care Code Acute Code for Chg Fwd Diagnoses COVID-19 U07.1 Hypoxemia R09.02
== END 2024-04-20 13:33 | disposition home or self-care (01) ==
LOC: ER 03:51 → MEDSURG 07:40 → ER IP 08:04
PROVIDERS: Admitting Provider Internal Medicine; Emergency Provider Emergency Medicine; PCP Family Medicine; Visit Provider Student in an Organized Health Care Education/Training Program
DX: U07.1 COVID-19 (principal); R09.02 Hypoxemia; I10 Essential (primary) hypertension
CPT/HCPCS: 36415; 36600; 71045; 71250; 80051; 80053; 82330; 82607; 82805; 83036; 83605; 83735; 83880; 84443; 84484; 85025; 86140; 87040; 87486; 87581; 87633; 93005; 93306; 94640; 94760; 96372; 96374; 96375; 99285; G0378; J0248; J1650; J1940; J2919; J7613; J8540

== ENCOUNTER 2024-11-06 14:46 | Emergency (ER) | payer MEDICARE, SELFPAY ==
--- OUTSIDE RECORDS SUMMARY | 2024-06-13 08:00 | XMS_ITS ---
Author Organization [facility] Address [address] [place] [address] Care Team Providers Care Stator Plate Washer Name Role Phone Osiel Elliott Primary Care Provider JILLIAN Martin Unavailable [phone] Allergies Allergen (clinical drug ingredient) Drug/Non Drug Allergy documented on EMR Reaction Allergy Type Onset Date Status Penicillin Unknown Drug Allergy Active REASON FOR VISIT [JILLIAN] 3-THU. F/U Medications Medication SIG (Take, Route, Frequency, Duration) Notes Start Date End Date Status Venlafaxine HCl ER 75 MG Oral; Duration: 90 Days Active Lisinopril 20 MG Oral; Duration: 90 Days Active Omeprazole 20 MG Oral; Duration: 90 Days Active Atorvastatin Calcium 40 MG Oral; Duration: 90 Days Active busPIRone HCl 10 MG Oral; Duration: 30 Days Active Methadone HCl 10 MG Oral; Duration: 30 Days Active Sildenafil Citrate 100 MG 1 tablet as ne eded Orally as needed; Duration: 30 days 06/13/2024 11/10/2024 Active Testosterone 1.62 % Transdermal; Duratio n: 30 Days Active Social History Tobacco Use: Social History Observation Description Date Details (start date - stop date) Never Smoker NA - NA Tobacco Control (Standard) Question Answer Notes Tobacco use: Nonsmoker Problems Problem Type SNOMED Code ICD Code Onset Dates Problem Status W/U Status Risk Notes Problem Hypogonadism mal e (E29.1) Active confirmed Problem Erectile dysfunction co-occurrent and due to arterial insufficiency (disorder) ([id number]) Erectile dysfunction due to arterial insufficiency (N52.01) Active confirmed Vital Signs Blood pressure systolic 138 mm Hg 06/14/19 25 Blood pressure diastolic 80 mm Hg 025 Heart Rate 80 /min 06/13/2024 Respiratory Rate 20 /min 06/13/2024 Height 71 in 06/13/2024 Weight 180.0 lbs 06/13/2024 BMI 25.1 kg/m2 06/13/2024 Oximetry 97 % 06/13/2024 Encounters Encounter Location Date Provider Diagnosis [facility] [address] [place] [address] 06/13/2024 JILLIAN TUTTLEMERCYTAMMIE Chronic fatigue R53. 82 ; Exercise counseling Z71.82 ; Hypogonadism male E29.1 and Erectile dysfunction due to arterial insufficiency N52.01 Assessments Encounter Date Diagnosis (ICD Code) Assessment Notes Treatment Notes Treatment Clinical Notes Section Notes 06/13/2024 Chronic fatigue (ICD-10 - R53.82) The patient and I agree on continuing with agreed regimen of TRT with daily topicals with 2 pumps given better results of symptoms and normal surveillance labs that were checked. We reviewed these in detail today. We again discussed diet and exercise and the importance of this, and patient reports to be trying to better this. I did discuss the findings in PSA velocity from 0.6 to now 2.05. Recommended repeating this at next lab check and keeping close f/u with patient. We discussed risks vs benefits on TRT, especially molecular genetic pathologist supplementation. Involving the ED, we discussed the concept behind ED (likely based on his other comorbidities versus ADLs) discussed transitioning back to PRN sildenafil 100 mg. Side effects reviewed. Prescription sent. He should still have refills through pharmacy from last prescription sent in at [facility]. For now, no need for further intervention or workup. Plan is to have patient return care in 3 months with repeat surveillance labs and continued reassessment. Vitals continue to remain stable. No new complaints mentioned. Through shared decision making, we are in agreement with this plan. All questions that were asked, were answered, and he is satisfied with this plan. He understands to return care sooner if needed. 06/13/2024 Exercise counseling (ICD-10 - Z71.82) The patient and I agree on continuing with agreed regimen of TRT with daily topicals with 2 pumps given better results of symptoms and normal surveillance labs that were checked. We reviewed these in detail today. We again discussed diet and exercise and the importance of this, and patient reports to be trying to better this. I did discuss the findings in PSA velocity from 0.6 to now 2.05. Recommended repeating this at next lab check and keeping close f/u with patient. We discussed risks vs benefits on TRT, especially molecular genetic pathologist supplementation. Involving the ED, we discussed the concept behind ED (likely based on his other comorbidities versus ADLs) discussed transitioning back to PRN sildenafil 100 mg. Side effects reviewed. Prescription sent. He should still have refills through pharmacy from [facility]. For now, no need for further intervention or workup. Plan is to have patient return care in 3 months with repeat surveillance labs and continued reassessment. Vitals continue to remain stable. No new complaints mentioned. Through shared decision making, we are in agreement with this plan. All questions that were asked, were answered, and he is satisfied with this plan. He understands to return care sooner if needed. 06/13/2024 Hypogonadism male (ICD-10 - E29.1) The patient and I agree on continuing with agreed regimen of TRT with daily topicals with 2 pumps given better results of symptoms and normal surveillance labs that were checked. We reviewed these in detail today. We again discussed diet and exercise and the importance of this, and patient reports to be trying to better this. I did discuss the findings in PSA velocity from 0.6 to now 2.05. Recommended repeating this at next lab check and keeping close f/u with patient. We discussed risks vs benefits on TRT, especially group home supplementation. Involving the ED, we discussed the concept behind ED (likely based on his other comorbidities versus ADLs) discussed transitioning back to PRN sildenafil 100 mg. Side effects reviewed. Prescription sent. He should still have refills through pharmacy from last prescription sent in [facility]. For now, no need for further intervention or workup. Plan is to have patient return care in 3 months with repeat surveillance labs and continued reassessment. Vitals continue to remain stable. No new complaints mentioned. Through shared decision making, we are in agreement with this plan. All questions that were asked, were answered, and he is satisfied with this plan. He understands to return care sooner if needed. 06/13/2024 Erectile dysfunction due to arterial insufficiency (ICD-10 - N52.01) The patient and I agree on continuing with agreed regimen of TRT with daily topicals with 2 pumps given better results of symptoms and normal surveillance labs that were checked. We reviewed these in detail today. We again discussed diet and exercise and the importance of this, and patient reports to be trying to better this. I did discuss the findings in PSA velocity from 0.6 to now 2.05. Recommended repeating this at next lab check and keeping close f/u with patient. We discussed risks vs benefits on TRT, especially molecular genetic pathologist supplementation. Involving the ED, we discussed the concept behind ED (likely based on his other comorbidities versus ADLs) discussed transitioning back to PRN sildenafil 100 mg. Side effects reviewed. Prescription sent. He should still have refills through pharmacy from last prescription sent in at [facility]. For now, no need for further intervention or workup. Plan is to have patient return care in 3 months with repeat surveillance labs and continued reassessment. Vitals continue to remain stable. No new complaints mentioned. Through shared decision making, we are in agreement with this plan. All questions that were asked, were answered, and he is satisfied with this plan. He understands to return care sooner if needed. Plan Of Treatment Medication Medication Name Sig Start Date Stop Date Notes Sildenafil Citrate 100 MG 1 tablet as ne eded Orally as needed; Duration: 30 days 06/13/2024 11/10/2024 Pending Test Test Name Order Date CBC (H/H, RBC, INDICES, WBC, PLT) (1759) 06/13/2024 TESTOSTERONE, TOTAL, MALES (ADULT), IA ( 873) 06/13/2024 PSA, TOTAL (5363) 06/13/2024 Next Appt Details Follow Up: 3 months w labs, Reason: Provider Name:JILLIAN KENNY, 01/16/2025 01:00:00 PM, [address] [facility] [place], [address], Provider Name:JILLIAN KENNY, 04/17/2025 01:00:00 PM, [address] [facility] [place], [address], Progress Notes * Sangeetha BELLEOB:1945 (79 yo M)Acc No.[id number]:06/13/2024 Progress Notes Patient: Jonny LAKE Provider: Lenny Kenny NP :1945 A ge:78 Y S ex:Male Date:06/13/2024 Address:[address] [place] [address] [address], [id number] Pcp:Osiel Elliott Subjective: * Chief Complaints: * 1 . [JILLIAN] 3-MON. F/U. * HPI: * : 78 y/o M who was initially r eferred to [facility] for further elevation and treatment involving ED and was on Sildenafil 25mg. IPSS 3 QOL 0. On 1 with a TT of 239 and on 02/2024 with a TT of 45. He was counciled on options, and started with daily topicals. Here today for interval 3 month followup and establishment at [facility] for continuation of care and he was also transitioned to PRN 20mg cialis. C ontinue to deny LUTS. Reports improved symptoms, but he reported [facility] with cialis, and is wanting to transition back to sildenafil. No other new complaints today. Last seen on 02/2024 at [facility]. * ROS: G eneral / Constitutional: Patient denies chills, fever, change in appetite. A&O Gastrointestinal: Patient denies abdominal pain, nausea, vomiting, diarrhea. Genitourinary: Comments See HPI for details. * Medical History: M edical History Verified. * Hospitalization/Major Diagno stic Procedure: [facility] admit for covid two days 06/07. * Family History: N o Family History documented.. * Social History: T obacco Use: T obacco Control (Standard) T obacco use: N onsmoker. * Medications: T aking busPIRone HCl 10 MG Tablet Oral , Taking Methadone HCl 10 MG Tablet Oral , Taking Testosterone 1.62 % Gel Transdermal , Taking Venlafaxine HCl ER 75 MG Capsule Extended Release 24 Hour Oral , Taking Lisinopril 20 MG Tablet Oral , Taking Omeprazole 20 MG Capsule Delayed Release Oral , Taking Atorvastatin Calcium 40 MG Tablet Oral , Medication List reviewed and reconciled with the patient * Allergies: P enicillin. Objective: * Vitals: H R: 80 /min, BP: 138/80 mm Hg, Wt: 180.0 lbs, BMI: 25.1 Index, RR: 20 /min, Ht: 71 in, Oxygen sat %: 97 %, Ht-cm: 180.34 cm, Wt-k.65 kg. * Examination: G eneral Examination: GENERAL APPEARANCE: a lert, well hydrated, in no distress.? HEAD: n ormocephalic. EYES: P ERRL. SKIN: g ood turgor, warm, and dry. HEART: n o signs of abnormalities. LUNGS: n o signs of distress. ABDOMEN: n ormal, soft, nontender, nondistended. MALE GENITOURINARY: r efer to the HPI and Assessment/Plan.? MUSCULOSKELETAL: f ull ROM. EXTREMITIES: n ormal. PERIPHERAL PULSES: n ormal. NEUROLOGIC: A &O. Assessment: * Assessment: 1. C hronic fatigue - R53.82 (Primary) 2 . E xercise counseling - Z71.82? 3. H ypogonadism male - E29.1 4 . E rectile dysfunction due to arterial insufficiency - N52.01 The patient and I agree on c ontinuing with agreed regimen of TRT with daily topicals with 2 pumps?given better results of symptoms and normal surveillance labs that were checked. We reviewed these in detail today. We again discussed diet and exercise and the importance of this, and patient reports to be trying to better this. I did discuss the findings in PSA velocity from 0.6 to now 2.05. Recommended repeating this at next lab check and keeping close f/u with patient. We discussed risks vs benefits on TRT, especially group home supplementation. Involving the ED, we discussed the concept behind ED (likely based on his other comorbidities versus ADLs) discussed transitioning back to PRN sildenafil 1 00 mg. Side effects reviewed. Prescription sent. He should still have refills through pharmacy from last prescription sent in at [facility]. For now, no need for further intervention or workup. Plan is to have patient return care in 3 months with repeat surveillance labs and continued reassessment. Vitals continue to remain stable. No new complaints mentioned. Through shared decision making, we are in agreement with this plan. All questions that were asked, were answered, and he is satisfied with this plan. He understands to return care sooner if needed. Plan: * Treatment: 2. E rectile dysfunction due to arterial insufficiency Start Sildenafil Citrate Tablet, 100 MG, 1 tablet as needed, Orally, as needed, 30 days, 30, Refills 4. * Follow Up: 3 months w labs * Billing Information: * Visit Code: 61925 Office Visit, New Pt., Level 3. * Procedure Codes: * Electronic signature of NOEL KENNY APRN on 11/06/2024 at 03:04 PM CDT Sign off status: Pending * Provider: Lenny Kenny NP Date: 06/13/2024 Generated for Trenton herrera/Christian/Brittney on: 11/06/2024 03:04 PM CDT History and Physical Notes * Examination Category Sub-Category Detail Notes Category Not es General Examination GENERAL APPEARANCE: alert, w ell hydrated, in no distress HEAD: normocephalic EYES: PERRL HEART: no signs of abnormal ities LUNGS: no signs of distress ABDOMEN: normal, soft, nonten onelia, nondistended NEUROLOGIC: A&O SKIN: good turgor, warm, a nd dry EXTREMITIES: normal PERIPHERAL PULSES: normal MUSCULOSKELETAL: full ROM MALE GENITOURINARY: refer to the HPI and Assessment/Plan
--- OUTSIDE RECORDS SUMMARY | 2024-09-12 08:00 | XMS_ITS ---
Author Organization [facility] Address [address] [place] [address], [place] [address] Care Team Providers Care Hotel Operation Manager Name Role Phone Osiel Elliott Primary Care Provider JILLIAN Martin [phone] REASON FOR VISIT [JILLIAN] 3-MON. F/U labs Encounters Encounter Location Date Provider Diagnosis [facility] [address] [place] [address] 09/12/2024 JILLIAN KENNY Plan Of Treatment Next Appt Details Provider Name:JILLIAN KENNY, 01/16/2025 01:00:00 PM, [address] [place] [address], [place], [address], Provider Name:JILLIAN KENNY, 04/17/2025 01:00:00 PM, [address] [place] [address], [place], [address], Progress Notes * Sangeetha CHINOOB:1945 (79 yo M)Acc No.[id number]:09/12/2024 Progress Notes Patient: Jonny LAKE Provider: Lenny Kenny NP :1945 A ge:79 Y S ex:Male Date:09/12/2024 Address:[address] [facility] [id number] Pcp:Osiel Elliott Subjective: * Chief Complaints: * 1 . [JILLIAN] 3-MON. F/U labs. * Medical History: Objective: * Vitals: Assessment: Plan: * Treatment: * Billing Information: * Visit Code: * Procedure Codes: * Electronic signature of NOEL KENNY APRN on 11/06/2024 at 03:04 PM CDT Sign off status: Pending * Provider: Lenny Kenny NP Date: 09/12/2024 Generated for Trenton herrera/Christian/Brittney on: 11/06/2024 03:04 PM CDT
--- OUTSIDE RECORDS SUMMARY | 2024-10-17 08:00 | XMS_ITS ---
Author Organization [employer] Address [address] [place] [address] Care Team Providers Care High Raw Sugar Boiler Name Role Phone Osiel Elliott Primary Care Provider JILLIAN Martin [phone] Allergies Allergen (clinical drug ingredient) Drug/Non Drug Allergy documented on EMR Reaction Allergy Type Onset Date Status Penicillin Unknown Drug Allergy Active REASON FOR VISIT 3 MONTH FU Medications Medication SIG (Take, Route, Frequency, Duration) Notes Start Date End Date Status Venlafaxine HCl ER 75 MG Oral; Duration: 90 Days Active Testosterone 1.62 % Transdermal; Duratio n: 30 Days Active Omeprazole 20 MG Oral; Duration: 90 Days Active Lisinopril 20 MG Oral; Duration: 90 Days Active Methadone HCl 10 MG Oral; Duration: 30 Days Active busPIRone HCl 10 MG Oral; Duration: 30 Days Active Sildenafil Citrate 100 MG 1 tablet as ne eded Orally as needed; Duration: 30 days 06/13/2024 11/10/2024 Active Atorvastatin Calcium 40 MG Oral; Duration: 90 Days Active Social History Tobacco Use: Social History Observation Description Date Details (start date - stop date) Never Smoker NA - NA Tobacco Control (Standard) Question Answer Notes Tobacco use: Nonsmoker Vital Signs Blood pressure systolic 136 mm Hg 10/18/19 25 Blood pressure diastolic 68 mm Hg 025 Heart Rate 75 /min 10/17/2024 Height 71 in 10/17/2024 Weight 181.0 lbs 10/17/2024 BMI 25.24 kg/m2 10/17/2024 Oximetry 95 % 10/17/2024 Encounters Encounter Location Date Provider Diagnosis [facility] [address] [facility] [address] 10/17/2024 JILLIAN KENNY Chronic fatigue R53. 82 ; Exercise counseling Z71.82 ; Hypogonadism male E29.1 and Erectile dysfunction due to arterial insufficiency N52.01 Assessments Encounter Date Diagnosis (ICD Code) Assessment Notes Treatment Notes Treatment Clinical Notes Section Notes 10/17/2024 Chronic fatigue (ICD-10 - R53.82) The patient and I agree on holding TRT with daily topicals for now given no significant symptomatic improvement. Discussed PSA has stabilized. WIll reassess at next visit with just a TT. Involving the ED, we discussed the concept behind ED (likely based on his other comorbidities versus ADLs) discussed continuing PRN sildenafil 100 mg. Side effects reviewed. Refill as needed. Plan is to have patient return care in 6 months with repeat surveillance labs and continued reassessment. Vitals continue to remain stable. No new complaints mentioned. Through shared decision making, we are in agreement with this plan. All questions that were asked, were answered, and he is satisfied with this plan. He understands to return care sooner if needed. 10/17/2024 Exercise counseling (ICD-10 - Z71.82) The patient and I agree on holding TRT with daily topicals for now given no significant symptomatic improvement. Discussed PSA has stabilized. WIll reassess at next visit with just a TT. Involving the ED, we discussed the concept behind ED (likely based on his other comorbidities versus ADLs) discussed continuing PRN sildenafil 100 mg. Side effects reviewed. Refill as needed. Plan is to have patient return care in 6 months with repeat surveillance labs and continued reassessment. Vitals continue to remain stable. No new complaints mentioned. Through shared decision making, we are in agreement with this plan. All questions that were asked, were answered, and he is satisfied with this plan. He understands to return care sooner if needed. 10/17/2024 Hypogonadism male (ICD-10 - E29.1) The patient and I agree on holding TRT with daily topicals for now given no significant symptomatic improvement. Discussed PSA has stabilized. WIll reassess at next visit with just a TT. Involving the ED, we discussed the concept behind ED (likely based on his other comorbidities versus ADLs) discussed continuing PRN sildenafil 100 mg. Side effects reviewed. Refill as needed. Plan is to have patient return care in 6 months with repeat surveillance labs and continued reassessment. Vitals continue to remain stable. No new complaints mentioned. Through shared decision making, we are in agreement with this plan. All questions that were asked, were answered, and he is satisfied with this plan. He understands to return care sooner if needed. 10/17/2024 Erectile dysfunction due to arterial insufficiency (ICD-10 - N52.01) The patient and I agree on holding TRT with daily topicals for now given no significant symptomatic improvement. Discussed PSA has stabilized. WIll reassess at next visit with just a TT. Involving the ED, we discussed the concept behind ED (likely based on his other comorbidities versus ADLs) discussed continuing PRN sildenafil 100 mg. Side effects reviewed. Refill as needed. Plan is to have patient return care in 6 months with repeat surveillance labs and continued reassessment. Vitals continue to remain stable. No new complaints mentioned. Through shared decision making, we are in agreement with this plan. All questions that were asked, were answered, and he is satisfied with this plan. He understands to return care sooner if needed. Plan Of Treatment Pending Test Test Name Order Date TESTOSTERONE, TOTAL, MALES (ADULT), IA ( 873) 10/17/2024 Next Appt Details Follow Up: 6 Months, Reason: w/ TT level Provider Name:JILLIAN KENNY, 01/16/2025 01:00:00 PM, [address] [place] [address], [place], [address], Provider Name:JILLIAN KENNY, 04/17/2025 01:00:00 PM, [address] [place] [address], [place], [address], Progress Notes * Sangeetha CHINOOB:1945 (79 yo M)Acc No.[id number]:10/17/2024 Progress Notes Patient: Jonny LAKE Provider: Lenny Kenny NP :1945 A ge:79 Y S ex:Male Date:10/17/2024 Address:[address] [place] [address] , [facility], [id number] Pcp:Osiel Elliott Subjective: * Chief Complaints: * 1 . 3 MONTH FU. * HPI: * : 79 y/o M who was [facility]red [facility] further [facility] and treatment involving ED and was on Sildenafil 25mg. IPSS 3 QOL 0. On 1 with a TT of 239 and on 02/2024 with a TT of 45. He was counciled on options, and started with daily topicals. Here today for continued interval 3 month followup. He was transitioned to PRN 20mg cialis previously, however, at last office visit, he was adjusted back to sildenafil at 100mg PRN. C ontinues to deny LUTS. Last visit, his PSA v elocity increase from 0.6 to now 2.05. He was instructed to continue to keep close f/u. Here today for 3 month f/u with safety labs. TT of 704, PSA of 0.69 and normal safety labs scanned in. He is noticing no change of hypogonadal symptoms since starting on TRT, and wanting to discuss holding this. * ROS: G eneral / Constitutional: Patient denies chills, fever, change in appetite. A&O Gastrointestinal: Patient denies abdominal pain, nausea, vomiting, diarrhea. Genitourinary: Comments See HPI for details. * Medical History: M edical History Verified. * Hospitalization/Major Diagno stic Procedure[place] [facility] [place] two days [place]07. * [...] Atorvastatin Calcium 40 MG Tablet Oral , Taking Sildenafil Citrate 100 MG Tablet 1 tablet as needed Orally as needed , stop date 11/10/2024, Medication List reviewed and reconciled with the patient * Allergies: P enicillin. Objective: * Vitals: H R: 75 /min, BP: 136/68 mm Hg, Wt: 181.0 lbs, BMI: 25.24 Index, Ht: 71 in, Oxygen sat %: 95 %, Ht-cm: 180.34 cm, Wt-k.1 kg. * Examination: G eneral Examination: GENERAL [...] N52.01 The patient and I agree on h olding TRT with daily topicals for now given no significant symptomatic improvement. Discussed PSA has stabilized. WIll reassess at next visit with just a TT. Involving the ED, we discussed the concept behind ED (likely based on his other comorbidities versus ADLs) discussed continuing PRN sildenafil 1 00 mg. Side effects reviewed. Refill as needed. P bob is to have patient return care in 6 months with repeat surveillance labs and continued reassessment. Vitals continue to remain stable. No new complaints mentioned. Through shared decision making, we are in agreement with this plan. All questions that were asked, were answered, and he is satisfied with this plan. He understands to return care sooner if needed. Plan: * Treatment: * Follow Up: 6 Months (Reason: w/ TT level) * Billing Information: * Visit Code: 77622 Office Visit, Est Pt., Level 3. Modifiers: 25 * Procedure Codes: * Electronic signature of NOEL KENNY APRN on 11/06/2024 at 03:03 PM CDT Sign off status: Pending * Provider: Lenny Kenny NP Date: 0 10/17/2024 Generated for Trenton herrera/Christian/eTazizasmitting on: 0 11/06/2024 03:03 PM CDT History and Physical Notes * [...]
[2024-11-06 14:48] VITALS: BP 101/53; PULSE 99; RESP 16; TEMP 36.8; O2SAT 95; BMI 25.1
--- NOTE | 2024-11-06 14:54 | CTR_ITS ---
PROCEDURE INFORMATION: Exam: CT Head Without Contrast Exam date and time: 11/06/2024 3:05 PM Age: 79 years old Clinical indication: Other: Weakness TECHNIQUE: Imaging protocol: Computed tomography of the head without contrast. Radiation optimization: All CT scans at this facility use at least one of these dose optimization techniques: automated exposure control; mA and/or kV adjustment per patient size (includes targeted exams where dose is matched to clinical indication); or iterative reconstruction. COMPARISON: CT head wo con* [id number] 03/30/2022 11:26 PM RADIATION DOSE METRICS: Total DLP (mGy-cm): 1181.04 FINDINGS: Brain: Normal. No hemorrhage. Unremarkable white matter. No mass effect. Cerebral ventricles: No ventriculomegaly. Paranasal sinuses: Visualized sinuses are unremarkable. No fluid levels. Mastoid air cells: Visualized mastoid air cells are well aerated. Bones: Unremarkable. No acute fracture. Soft tissues: Unremarkable. CT/CT head wo con* [id number] IMPRESSION: No acute intracranial abnormality.
--- NOTE | 2024-11-06 14:54 | XRR_ITS ---
PROCEDURE INFORMATION: Exam: XR Chest Exam date and time: 11/06/2024 2:59 PM Age: 79 years old Clinical indication: Other: Weakness TECHNIQUE: Imaging protocol: Radiologic exam of the chest. Views: 1 view. COMPARISON: CT chest con [id number] 04/19/2024 1:46 AM FINDINGS: Lungs: Generalized prominence of the interstitium is present. This is stable. No acute infiltrate identified. Pleural spaces: Unremarkable. No pleural effusion. No pneumothorax. Heart/Mediastinum: Unremarkable. No cardiomegaly. Diaphragm: There is elevation of the right hemidiaphragm. Bowel loops are present beneath the right hemidiaphragm. This is unchanged however since the prior chest x-ray. Bones/joints: Unremarkable. XR/XR chest 1V portable [id number] IMPRESSION: Stable findings.
--- NOTE | 2024-11-06 14:58 | W.ED.WEAKNES ---
HPI - Weakness General: Chief complaint: Weakness Stated complaint: weakness; dizzy Time Seen by Provider: 11/06/24 14:47 Source: patient and EMS Mode of arrival: EMS Limitations: no limitations History of Present Illness: 79-year-old male states he been having weakness since yesterday. He states this morning when he woke up he did increase is not really able to ambulate states he feels lightheaded and like he is going to pass out states have a hard time holding onto things denies any focal deficits. He denies any headache denies any vomiting or diarrhea or bleeding. Associated symptoms: Denies chest pain, chills, fever(s), headache(s), nausea or vomiting Related Data Home Medications ?Medication ?Instructions ?Recorded ?Confirmed atorvastatin 40 mg tablet 40 mg PO DAILY 04/19/24 11/06/24 lisinopril 20 mg tablet 20 mg PO DAILY 04/19/24 11/06/24 methadone 10 mg tablet 10 mg PO QID 04/19/24 11/06/24 omeprazole 20 mg capsule,delayed 20 mg PO DAILY 04/19/24 11/06/24 release venlafaxine 75 mg capsule,extended 75 mg PO DAILY 04/19/24 11/06/24 release 24 hr cyclobenzaprine 10 mg tablet 10 mg PO DAILY PRN Spasms 11/06/24 11/06/24 sildenafil 100 mg tablet 100 mg PO DAILY 11/06/24 11/06/24 Allergies Allergy/AdvReac Type Severity Reaction Status Date / Time Penicillins Allergy Unresponsiv Verified 04/19/24 00:44 e Review of Systems Const: Reports: fatigue and malaise; Denies: fever(s), chills, body aches or change in appetite ENMT: Denies: throat pain or dental pain Card: Denies: chest pain Resp: Denies: dyspnea GI: Denies: abdominal pain, nausea, vomiting or diarrhea Musc: Denies: neck pain or back pain Skin/Breast: Denies: rash Neuro: Reports: weakness in extremities and difficulty walking; Denies: headache(s) PFS ED PFSH: Medical History Clavicle fracture Physical Exam Const: COMMON NORMALS: patient oriented x3 GENERAL APPEARANCE: ill appearing HENMT: COMMON NORMALS: normocephalic and atraumatic HEAD & SCALP: normocephalic and atraumatic Eye: COMMON NORMALS: conjunctivae normal CONJUNCTIVA: Yes conjunctivae normal Neck/C-Spine: COMMON NORMALS: full ROM and supple Chest: COMMONS NORMALS: normal inspection of the chest Resp: COMMON NORMALS: normal respiratory effort, No retractions, No use of accessory muscles and clear to auscultation bilaterally AUSCULTATION: clear to auscultation bilaterally Cardio: COMMON NORMALS: regular rate, regular rhythm and No murmurs present (Cardio) RATE: regular rate RHYTHM: regular rhythm GI: COMMON NORMALS: Normal to inspection, nondistended, normoactive bowel sounds present, Soft to palpation, non-tender and no masses PALPATION: Yes Soft to palpation Extremity: COMMON NORMALS: normal to inspection and full ROM Neuro: COMMON NORMALS: patient oriented x3, moves all extremities and no focal motor deficits CRANIAL NERVES: Yes CN normal except as noted SPEECH: speech normal MOTOR EXAM: 5/5 motor strength present throughout Psych: COMMON NORMALS: mental status grossly normal, Normal thought process present and cooperative THOUGHT PROCESS: Normal thought process present Skin: COMMON NORMALS: no rashes or lesions noted and no wounds GENERAL SKIN EXAM: no rashes or lesions noted Course Vital Signs: Vital signs: Vital Signs Temperature 98.3 F 11/06/24 14:48 Pulse Rate 99 11/06/24 14:48 Respiratory Rate 16 11/06/24 14:48 Blood Pressure 101/53 11/06/24 14:48 Pulse Oximetry 95 11/06/24 14:48 Oxygen Delivery Me thod Room Air 11/06/24 14:48 MDM - Weakness Medical Decision Making Patient presents for generalized weakness feels much improved after IV fluids he has been able ambulate without any difficulty imaging head CT is normal I did offer him admission he states he feels much improved and wants to go home he is stable for discharge at this time follow-up with PCP return if worsening. Medical Records I reviewed the patient's medical records. Lab Data I reviewed the patient's lab results. 11/06/24 15:02 11/06/24 15:02 Radiology Impressions Chest X-Ray 11/06/24 14:54 IMPRESSION: Stable findings. Head CT 11/06/24 14:54 IMPRESSION: No acute intracranial abnormality. Laboratory Results WBC 8.88 10^3/uL (3.29-11.43) 11/06/24 15:02 RBC 3.71 10^6/uL (3.85-5.65) L 11/06/24 15:02 Hgb 11.20 g/dL (11.27-16.99) L 11/06/24 15:02 Hct 35.2 % (37-53) L 11/06/24 15:02 MCV 94.9 fl (82-101) 11/06/24 15:02 MCH 30.2 pg (27-33) 11/06/24 15:02 MCHC 31.8 g/dL (30-55) 11/06/24 15:02 RDW 14.6 % (12.1-15.1) 11/06/24 15:02 Plt Count 164 10^3/cmm (157-399) 11/06/24 15:02 MPV 10.1 fL (7.4-10.4) 11/06/24 15:02 Neut % (Auto) 85.3 % 11/06/24 15:02 Lymph % (Auto) 10.2 % 11/06/24 15:02 [place] % (Auto) 3.6 % 11/06/24 15:02 Eos % (Auto) 0.6 % 11/06/24 15:02 Baso % (Auto) 0.2 % 11/06/24 15:02 Neut # (Auto) 7.57 10^3/uL (1.8-7.7) 11/06/24 15:02 Lymph # (Auto) 0.9 10^3/uL (0.8-4.8) 11/06/24 15:02 [place] # (Auto) 0.3 10^3/uL (0.2-0.9) 11/06/24 15:02 Eos # (Auto) 0.1 10^3/uL (0.0-0.8) 11/06/24 15:02 Baso # (Auto) 0.0 10^3/uL (0.0-0.1) 11/06/24 15:02 Nucleated RBC % (auto) 0 % 11/06/24 15:02 Nucleated RBCs # 0.0 /100WBC 11/06/24 15:02 PT 13.60 SECONDS (12.1-14.9) 11/06/24 15:02 INR 0.97 (0.8-1.2) 11/06/24 15:02 Sodium 135 mmol/L (136-145) L 11/06/24 15:02 Potassium 4.3 mmol/L (3.5-5.1) 11/06/24 15:02 Chloride 100 mmol/L (98-107) 11/06/24 15:02 Carbon Dioxide 26 mmol/L (22-29) 11/06/24 15:02 Anion Gap 13.3 (5-19) 11/06/24 15:02 BUN 16 mg/dL (8-23) 11/06/24 15:02 Creatinine 1.0 mg/dL (0.7-1.2) 11/06/24 15:02 GFR Calculation Not Reportable 11/06/24 15:02 Glucose 112 mg/dL (65-115) 11/06/24 15:02 Calculated Osmolality 282 mOsm/kg (285-295) L 11/06/24 15:02 Calcium 8.4 mg/dL (8.5-10.5) L 11/06/24 15:02 Magnesium 1.7 mg/dL (1.7-2.3) 11/06/24 15:02 Total Bilirubin 0.5 mg/dL (0.15-1.2) 11/06/24 15:02 AST 14 U/L (0-40) 11/06/24 15:02 ALT 8 U/L (0-41) 11/06/24 15:02 Alkaline Phosphatase 71 U/L (40-130) 11/06/24 15:02 Total Protein 6.6 g/dL (6.6-8.7) 11/06/24 15:02 Albumin 3.6 g/dL (3.5-5.2) 11/06/24 15:02 Globulin 3.0 g/dL (1.3-4.6) 11/06/24 15:02 Lipase 12 U/L (13-60) L 11/06/24 15:02 TSH 2.52 uIU/mL (0.27-4.20) 11/06/24 15:02 Urine Color Yellow (Yellow) 11/06/24 16:33 Urine Appearance Clear (CLEAR) 11/06/24 16:33 Urine pH 5.0 (5-7) 11/06/24 16:33 Ur Specific Shoshone 1.020 (1.005-1.030) 11/06/24 16:33 Urine Protein Negative (Negative) 11/06/24 16:33 Urine Glucose (UA) Negative (Normal) 11/06/24 16:33 Urine Ketones Negative (Negative) 11/06/24 16:33 Urine Blood Negative (Negative) 11/06/24 16:33 Urine Nitrate Negative (Negative) 11/06/24 16:33 Urine Bilirubin Negative (Negative) 11/06/24 16:33 Urine Urobilinogen 1.0 mg/dL (Negative) 11/06/24 16:33 Ur Leukocyte Esterase Negative (Negative) 11/06/24 16:33 Urine RBC 0-2 /hpf (0-2) 11/06/24 16:33 Urine WBC 0-5 /hpf (0-5) 11/06/24 16:33 Ur Squamous Epith Cells 0-5 /hpf (0-5) 11/06/24 16:33 Amorphous Sediment Not Reportable 11/06/24 16:33 Urine Bacteria None seen /hpf (NONE) 11/06/24 16:33 Hyaline Casts 7.85 /lpf 11/06/24 16:33 All radiology interpretation(s) finalized by discharge Discharge Plan Discharge Patient Disposition: Home Clinical Impression: Generalized weakness Condition: Stable Prescriptions: No Action atorvastatin 40 mg tablet 40 mg PO DAILY venlafaxine 75 mg capsule,extended release 24hr 75 mg PO DAILY methadone 10 mg tablet 10 mg PO QID lisinopril 20 mg tablet 20 mg PO DAILY omeprazole 20 mg capsule,delayed release(DR/EC) 20 mg PO DAILY cyclobenzaprine 10 mg tablet 10 mg PO DAILY PRN (Reason: Spasms) sildenafil 100 mg tablet 100 mg PO DAILY Discharge Orders: Discharge ED (Routine); Ordered 11/06/24 Ordered By: Nancy Augustin Referrals: Osiel Elliott MD [Primary Care Provider, Family Practice] - 4-7 days Discharge Diet: Advance as tolerated Discharge Activity: Resume usual activity Patient Instructions: Weakness (ED) Print Language: Korean Coding Level of Care Code ED Internal Revenue Service Agent for Juan C Lama
--- OUTSIDE RECORDS SUMMARY | 2024-11-06 15:03 | XMS_ITS | Clinical Summary ---
Author Organization [facility] Address [address] [facility] Attn: [place] [id number] Care Team Providers Care Wet End Tester Name Role Phone CauseyTaurus yates Gumaro Primary Care Provide r Allergies Active Allergy Reactions Criticality Noted Date Comments Penicillins Anaphylaxis High 12/01/2018 Medications aspirin (RENETTA) 325 mg tablet Take 325 mg by mouth daily. 12/01/2018 Active lisinopriL (PRINIVIL) 20 mg tablet Take 20 mg by mouth daily. 12/01/2018 Active latanoprost (XALATAN) 0.005 % solution 1 Drop daily at bedtime. 12/01/2018 Active acetaminophen (TYLENOL) 500 mg tablet Take 500 mg by mouth every 6 hours as needed. 12/01/2018 Active polyvinyl alcohol (LIQUIFILM TEARS) 1.4 % solution 1 Drop PRN for Discomfort. 12/01/2018 Active venlafaxine (EFFEXOR) 75 mg tablet Take 75 mg by mouth 3 times daily. 12/01/2018 Active acetaminophen/di phenhydramine (TYLENOL PM ORAL) Take by mouth. 12/01/2018 Active methadone (DOLOPHINE) 10 mg Tablet Take 10 mg by mouth every 12 hours. 12/01/2018 Active omeprazole (PriLOSEC) 20 mg Capsule, Delayed Release(E.C.) Take 20 mg by mouth daily. 12/01/2018 Active atorvastatin (LIPITOR) 40 mg tablet Take 40 mg by mouth daily with supper. 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 Gender Identity Not on file Sexual Orientation Not on file Last Filed Vital Signs Vital Sign Reading Time Taken Comments Blood Pressure 96/58 11/21/2019 3:02 PM CDT Pulse 78 12/21/2018 3:00 PM CDT Temperature 36.6 C (97.9 F) 12/21/2018 3:00 PM CDT Respiratory Rate 16 12/21/2018 2:50 PM CDT Oxygen Saturation - - Inhaled Oxygen Concentration - - Weight 95.7 kg (211 lb) 11/21/2019 3:02 PM CDT Height 180.3 cm (5' 11 ) 11/21/2019 3:02 PM CDT Body Mass Index 29.43 11/21/2019 3:02 PM CDT Plan of Treatment Health Maintenance Due Date Last Done Comments DTAP/TDAP/TD VACCINES (1 - Tdap) 07/09/1966 PNEUMOCOCCAL VACCINE 50+ YEARS (1 of 1 - PCV) 07/09/18 98 ZOSTER VACCINE (1 of 2) 07/09/1997 RSV VACCINE (60+ or ) (1 - 1-dose 75+ series) 07/09/2022 INFLUENZA VACCINE (#1) 2024 Insurance [email or web address] [facility] [facility] Care Teams Wet End Tester Relationship Specialty Start Date End Date Taurus Causey DO [address] [facility] [address] [place] [address] PCP - General Internal Medicine 12/01/18
--- OUTSIDE RECORDS SUMMARY | 2024-11-06 15:04 | XMS_ITS | Patient Health Record ---
Author Organization [facility] Address [address] [place] [address], [place] [address] Care Team Providers Care Calibration Engineer Name Role Phone Osiel Elliott Primary Care Provider JILLIAN Martin Unavailable [phone] Allergies Allergen (clinical drug ingredient) Drug/Non Drug Allergy documented on EMR Reaction Allergy Type Onset Date Status Penicillin Unknown Drug Allergy Active Reason For Referral Reason JOHN. 3-4 MON. w/LABS Diagnosis 1 Chronic fatigue (R53 .82) Diagnosis 2 Low libido (R68.82) Diagnosis 3 Erectile dysfunction , unspecified erectile dysfunction type (N52.9) Diagnosis 4 Hypogonadism in male (E29.1) Referral Organization [facility] Referring Provider First Name JLILIAN Referring Provider Last Name EFRAÍN Referring Provider Speciality Other Spec ialties Referred Organization [facility] Referred Provider JILLIAN KENNY Referred Address [address] [place] [address],[place],[address], Referred Provider Specialty Nurse Israel Fierro Notes Patito Cohen 10:15:48 AM >Pt. wants labs sent to [place], [place]; Adam Yanes. Pt. is JOHN to see EFRAÍN . Pt. wants to know if you sent Rx to [facility] Referral Priority Routine Medications Medication SIG (Take, Route, Frequency, Duration) Notes Start Date End Date Status Venlafaxine HCl ER 75 MG Oral; Duration: 90 Days Active Testosterone 1.62 % Transdermal; Duratio n: 30 Days Active Omeprazole 20 MG Oral; Duration: 90 Days Active Lisinopril 20 MG Oral; Duration: 90 Days Active busPIRone [...] Problem Status W/U Status Risk Notes Problem Erectile dysfunction co-occurrent and due to arterial insufficiency (disorder) (065055135926844) Erectile dysfunction due to arterial insufficiency (N52.01) Active confirmed Problem Male hypogonadism (43814543) Hypogonadism in male (E29.1) Active confirmed Problem Chronic fatigue syndrome (47777890) Chronic fatigue (R53.82) Active confirmed Problem Male hypogonadism (96832632) Hypogonadism male (E29.1) Active confirmed Problem Erectile dysfunction (disorder) (416639309) Erectile dysfunction, unspecified erectile dysfunction type (N52.9) Active confirmed Problem Low libido (5255472) Low libido (R68.82) Active confirmed Vital Signs Heart Rate 75 /min 10/17/2024 Respiratory Rate 20 /min 06/13/2024 Blood pressure diastolic 68 mm Hg 10/17/2024 Oximetry 95 % 10/17/2024 Height 71 in 10/17/2024 Blood pressure systolic 136 mm Hg 10/17/2024 Weight 181.0 lbs 10/17/2024 BMI 25.24 kg/m2 10/17/2024 Encounters Encounter Location Date Provider Diagnosis [facility] [address] [place] [address], [place] [address] 06/13/2024 JILLIAN KENNY Chronic fatigue R53. 82 ; Exercise counseling Z71.82 ; Hypogonadism male E29.1 and Erectile dysfunction due to arterial insufficiency N52.[address] [facility] [address] [place] [address], [place] [address] 10/17/2024 JILLIAN KENNY Chronic fatigue R53. 82 ; Exercise counseling Z71.82 ; Hypogonadism male E29.1 and Erectile dysfunction due to arterial insufficiency N52.01 [facility] [address] [place] [address], [place] [address] 03/08/2024 JILLIAN KENNY [facility] [address] [place] [address] 05/23/2024 JILLIAN KENNY Hypogonadism in male E29.1 Assessments Encounter Date Diagnosis (ICD Code) Assessment Notes Treatment Notes Treatment Clinical Notes Section Notes 06/13/2024 Exercise counseling (ICD-10 - Z71.82) The [...] discussed risks vs benefits on TRT, especially terminal gauger supervisor supplementation. Involving the ED, we discussed the concept behind ED (likely based on his other comorbidities versus ADLs) discussed transitioning back to PRN sildenafil 100 mg. Side effects reviewed. Prescription sent. He should still have refills through pharmacy from last prescription sent in at [facility]. For now, no need for [...] to return care sooner if needed. 06/13/2024 Chronic fatigue (ICD-10 - R53.82) The [...] discussed risks vs benefits on TRT, especially custodial supplementation. Involving the ED, we discussed the [...] understands to return care sooner if needed. 05/23/2024 Hypogonadism in male (ICD-10 - E29.1) 10/17/2024 Chronic fatigue (ICD-10 - R53.82) The [...] discussed risks vs benefits on TRT, especially terminal gauger supervisor supplementation. Involving the ED, we discussed the [...] discussed risks vs benefits on TRT, especially custodial supplementation. Involving the ED, we discussed the concept behind ED (likely based on his other comorbidities versus ADLs) discussed transitioning back to PRN sildenafil 100 mg. Side effects reviewed. Prescription sent. He should still have refills through pharmacy from last prescription sent in at [facility]. For now, no need for [...] Treatment Pending Test Test Name Order Date CBC (H/H, RBC, INDICES, WBC, PLT) (1759) 06/13/2024 TESTOSTERONE, TOTAL, MALES (ADULT), [place] ( 873) 10/17/2024 TESTOSTERONE, TOTAL, MALES (ADULT), [place] ( 873) 06/13/2024 PSA, TOTAL (5363) 06/13/2024 Next Appt Details Provider Name:JILLIAN EFRAÍN, 01/16/2025 01:00:00 PM, [address] [place] [address], [phone], Provider Name:JILLIAN KENNY, 04/17/2025 01:00:00 PM, [address] [place], [address], Insurance Providers Payer Name Payer Address Payer Phone Subscriber Number Group Number Insured Name Patient Relationship to Insured Coverage Start Date Coverage End Date [employer] Medicare Replacement [address] [address] [place] [phone] [id number] Jonny Lewis Self - patient is the insured Medical (General) History Hospitalization History Reason Date(Month/Year) [facility] admit for covid two days 06/07
--- OUTSIDE RECORDS SUMMARY | 2024-11-06 15:04 | XMS_ITS | Patient Health Record ---
Author Organization [facility] Address [address] [place] [address] Care Team Providers Care Motorcycle Mechanic Name Role Phone Taurus Causey Primary Care Provider Karlie JAY GAMAL Unavailable [phone] Daniel León Unavailable [phone] Allergies Allergen (clinical drug ingredient) Drug/Non Drug Allergy documented on EMR Reaction Allergy Type Onset Date Status Penicillin Unknown Drug Allergy Active Results Component Value Reference Range Notes Urinalysis, Routine Reviewed date:02/23/2024 01:36:19 PM Interpretation: Performing Lab: Notes/Report: Urine-Color monalisa Appearance clear Glucose - Bilirubin - Ketones - Specific [place] 1.020 Occult Blood trace pH 6.0 Urine Protein - Urobilinogen,Semi-Qn - Nitrite, Urine - WBC Esterase 1+ Urinalysis, Routine Reviewed date:12/11/2023 10:46:44 AM Interpretation: Performing Lab: Notes/Report: Urine-Color monalisa Appearance clear Glucose - Bilirubin 1+ Ketones - Specific [place] 1.025 Occult Blood - pH 6.0 Urine Protein - Urobilinogen,Semi-Qn - Nitrite, Urine - WBC Esterase 2+ Reason For Referral Reason Referral to VPW to ramon Sanchez in 3-4 months with labs. Diagnosis 1 Hypogonadism in male (E29.1) Diagnosis 2 Erectile dysfunction (N52.9) Diagnosis 3 Low libido (R68.82) Diagnosis 4 Chronic fatigue (R53 .82) Referral Organization [facility] Referring Provider First Name Referring Provider Last Name Mau Referring Provider Speciality Nurse Prac titioner Referred Provider Specialty Unknown Referral Priority Routine Medications Medication SIG (Take, Route, Frequency, Duration) Notes Start Date End Date Status Aspirin 325 MG 1 tablet Orally Once a day Active Testosterone 1.62 % 2 pumps to skin in t he morning to shoulder, upper arms or abdomen Transdermal Once a day for 30 days 03/29/2024 Active Methadone HCl 10 MG 1 tablet Orally Once a day Active Testosterone 1.62 % 2 pumps to skin in t he morning to shoulder, upper arms or abdomen Transdermal Once a day for 30 days 02/29/2024 Active Sildenafil Citrate 25 MG 1 tablet as nee ded Orally Once a day Active Atorvastatin Calcium 40 MG 1 tablet Oral ly Once a day Active Lisinopril 20 MG 1 tablet Orally Once a day Active Venlafaxine HCl ER 75 MG 1 capsule with food Orally Once a day Active Social History Tobacco Use: Social History Observation Description Date Details (start date - stop date) Never Smoker NA - NA Tobacco Control (Standard) Question Answer Notes Tobacco use: Nonsmoker Problems Problem Type SNOMED Code ICD Code Onset Dates Problem Status W/U Status Risk Notes Problem ED (erectile dysfunction) (N52.9) Active confirmed Problem Male hypogonadism (67354157) Hypogonadism in male (E29.1) Active confirmed Problem Chronic fatigue syndrome (90898966) Chronic fatigue (R53.82) Active confirmed Problem Erectile dysfunction (N52.9) Active confirmed Vital Signs Heart Rate 87 /min 02/23/2024 Height-cm 180.34 cm 02/23/2024 Blood pressure diastolic 67 mm Hg 02/23/2024 Weight-kg 87.54 kg 02/23/2024 Height 71 in 02/23/2024 Blood pressure systolic 125 mm Hg 02/23/2024 Weight 193 lbs 02/23/2024 BMI 26.92 kg/m2 02/23/2024 Procedures Procedure Date Ordered Date Performed Result Body Sit e Bladder Scan 11/26/2023 11/26/2023 [id number] Encounters Encounter Location Date Provider Diagnosis [facility] [address] [place] [address] 11/26/2023 GAMAL JAY ED (erectile dysfunction) N52.9 [facility] [address] [place] [address] 02/23/2024 Daniel León ED (erectile dysfunction) N52.9 ; Hypogonadism in male E29.1 ; Low libido R68.82 and Chronic fatigue R53.82 [facility] [address] [place] [address] 02/02/2024 [facility] ED (erectile dysfunction) N52.9 [facility] [address] [place] [address] 02/02/2024 [facility] ED (erectile dysfunction) N52.9 [facility] [address] [place] [address] 02/15/2024 [facility] ED (erectile dysfunction) N52.9 [facility] [address] [place] [address] 02/18/2024 [facility] [address] [place] [address] 02/29/2024 [place] [facility] [address] [place] [address] 03/08/2024 [place] [facility] [address] [place] [address], [place] [address] 03/29/2024 [facility] Assessments Encounter Date Diagnosis (ICD Code) Assessment Notes Treatment Notes Treatment Clinical Notes Section Notes 02/15/2024 ED (erectile dysfunction) (ICD-10 - N52.9) 02/02/2024 ED (erectile dysfunction) (ICD-10 - N52.9) 02/02/2024 ED (erectile dysfunction) (ICD-10 - N52.9) 11/26/2023 ED (erectile dysfunction) (ICD-10 - N52.9) Currently, on Sildenafil 25mg I briefly explained other options vs continue Sildenafil. Pt elect to continue Sildenafil. Rx sent Sildenafil 100mg. Reviewed side effects. Pt will like to know his TT levels and will obtain before next visit He will return in 4 months for symptom reassessment with UA/TT with Daniel Liu APRN or sooner with any concerns 78 y/o M with ED. Minimal improvement on Sildenafil 25mg. Plan: continue sildenafil 100mg prn -RTC in 4 months with UA/TT level with Daniel León APRN -RTC or call sooner with any concerns I, Stormy Kapelski, Scribe, am scribing for, and in the presence of, Dr. Jay. I, Dr. Gamal Jya, personally performed the services prescribed in this documentation, as scribed by Xuan Duong, in my presence, and it is both accurate and complete. 02/23/2024 ED (erectile dysfunction) (ICD-10 - N52.9) 78 y/o M with ED and low T. We discussed the concept behind his hypogonadal symptoms in detail. We discussed on gaining lab work prior to moving forward with TRT and discussed on aua guidelines require. Patient is interested in starting with TRT if appropriate.. I reviewed all side effects of TRT depending on which route is agreed upon including: mood swings, hot flashes, acne, weight gain, increase blood counts, worsening sleep apnea, prostate growth, among others. Previous total T of 239 with normal safety labs reviewed. All ways of administration were discussed in detail including jatenzo versus kyatrex, injections, testosterone pellets, and/or topicals. Pending insurance and financial constraints, patient is leaning towards starting topicals. I suggested that he repeat his TT per guidelines, but also gain an updated PSA. 3 Also discussed other options of ED. Involving the ED, we discussed the concept behind ED (likely based on his other comorbidities versus ADLs) and the treatment options for that include PDE 5 inhibitors (E.G Viagra, Cialis, Levitra), vacuum erection devices, intracavernosal injections/intraur ethral therapies, and surgical treatment with placement of an inflatable penile prosthesis. The pros and cons of all modalities were discussed at length. Pamphlet was given to the patient involving those treatment options and explained in further detail. I discussed if he would like to go further than the PDE 5 inhibitors that he see branch customer service representative prior to starting any of those options and can start/schedule at that time. We also discussed the new gainswave versus urogold in what that intels. Also discussed pending insurance/costs coverage. Patient can discuss further with scheduling staff if needed. The plan is to have patient stop sildenafil, and start cialis 20 mg , PRN. Side effects reviewed. We discussed risks vs benefits on testosterone supplementation especially exterminator termite supplementation including close surveillance and follow up with repeat lab. Will plan for patient to return care in 3-4 months once starting supplementation and for reevaluation with labs to be done prior to scheduled visit. I will call patient with these updated lab results that he will gain tomorrow AM. Patient now understands the importance of appropriate diet and exercise regimen. He will return care sooner if any questions or concerns arise. All questions that were asked, were answered, and he is satisfied with this plan. 02/23/2024 Hypogonadism in male (ICD-10 - E29.1) 78 y/o M with ED and low T. We discussed the concept behind his hypogonadal symptoms in detail. We discussed on gaining lab work prior to moving forward with TRT and discussed on aua guidelines require. Patient is interested in starting with TRT if appropriate.. I reviewed all side effects of TRT depending on which route is agreed upon including: mood swings, hot flashes, acne, weight gain, increase blood counts, worsening sleep apnea, prostate growth, among others. Previous total T of 239 with normal safety labs reviewed. All ways of administration were discussed in detail including jatenzo versus kyatrex, injections, testosterone pellets, and/or topicals. Pending insurance and financial constraints, patient is leaning towards starting topicals. I suggested that he repeat his TT per guidelines, but also gain an updated PSA. 3 Also discussed other options of ED. Involving the ED, we discussed the concept behind ED (likely based on his other comorbidities versus ADLs) and the treatment options for that include PDE 5 inhibitors (E.G Viagra, Cialis, Levitra), vacuum erection devices, intracavernosal injections/intraur ethral therapies, and surgical treatment with placement of an inflatable penile prosthesis. The pros and cons of all modalities were discussed at length. Pamphlet was given to the patient involving those treatment options and explained in further detail. I discussed if he would like to go further than the PDE 5 inhibitors that he see branch customer service representative prior to starting any of those options and can start/schedule at that time. We also discussed the new gainswave versus urogold in what that intels. Also discussed pending insurance/costs coverage. Patient can discuss further with scheduling staff if needed. The plan is to have patient stop sildenafil, and start cialis 20 mg , PRN. Side effects reviewed. We discussed risks vs benefits on testosterone supplementation especially exterminator termite supplementation including close surveillance and follow up with repeat lab. Will plan for patient to return care in 3-4 months once starting supplementation and for reevaluation with labs to be done prior to scheduled visit. I will call patient with these updated lab results that he will gain tomorrow AM. Patient now understands the importance of appropriate diet and exercise regimen. He will return care sooner if any questions or concerns arise. All questions that were asked, were answered, and he is satisfied with this plan. 02/23/2024 Low libido (ICD-10 - R68.82) 78 y/o M with ED and low T. We discussed the concept behind his hypogonadal symptoms in detail. We discussed on gaining lab work prior to moving forward with TRT and discussed on aua guidelines require. Patient is interested in starting with TRT if appropriate.. I reviewed all side effects of TRT depending on which route is agreed upon including: mood swings, hot flashes, acne, weight gain, increase blood counts, worsening sleep apnea, prostate growth, among others. Previous total T of 239 with normal safety labs reviewed. All ways of administration were discussed in detail including jatenzo versus kyatrex, injections, testosterone pellets, and/or topicals. Pending insurance and financial constraints, patient is leaning towards starting topicals. I suggested that he repeat his TT per guidelines, but also gain an updated PSA. 3 Also discussed other options of ED. Involving the ED, we discussed the concept behind ED (likely based on his other comorbidities versus ADLs) and the treatment options for that include PDE 5 inhibitors (E.G Viagra, Cialis, Levitra), vacuum erection devices, intracavernosal injections/intraur ethral therapies, and surgical treatment with placement of an inflatable penile prosthesis. The pros and cons of all modalities were discussed at length. Pamphlet was given to the patient involving those treatment options and explained in further detail. I discussed if he would like to go further than the PDE 5 inhibitors that he see branch customer service representative prior to starting any of those options and can start/schedule at that time. We also discussed the new gainswave versus urogold in what that intels. Also discussed pending insurance/costs coverage. Patient can discuss further with scheduling staff if needed. The plan is to have patient stop sildenafil, and start cialis 20 mg , PRN. Side effects reviewed. We discussed risks vs benefits on testosterone supplementation especially group home supplementation including close surveillance and follow up with repeat lab. Will plan for patient to return care in 3-4 months once starting supplementation and for reevaluation with labs to be done prior to scheduled visit. I will call patient with these updated lab results that he will gain tomorrow AM. Patient now understands the importance of appropriate diet and exercise regimen. He will return care sooner if any questions or concerns arise. All questions that were asked, were answered, and he is satisfied with this plan. 02/23/2024 Chronic fatigue (ICD-10 - R53.82) 78 y/o M with ED and low T. We discussed the concept behind his hypogonadal symptoms in detail. We discussed on gaining lab work prior to moving forward with TRT and discussed on aua guidelines require. Patient is interested in starting with TRT if appropriate.. I reviewed all side effects of TRT depending on which route is agreed upon including: mood swings, hot flashes, acne, weight gain, increase blood counts, worsening sleep apnea, prostate growth, among others. Previous total T of 239 with normal safety labs reviewed. All ways of administration were discussed in detail including jatenzo versus kyatrex, injections, testosterone pellets, and/or topicals. Pending insurance and financial constraints, patient is leaning towards starting topicals. I suggested that he repeat his TT per guidelines, but also gain an updated PSA. 3 Also discussed other options of ED. Involving the ED, we discussed the concept behind ED (likely based on his other comorbidities versus ADLs) and the treatment options for that include PDE 5 inhibitors (E.G Viagra, Cialis, Levitra), vacuum erection devices, intracavernosal injections/intraur ethral therapies, and surgical treatment with placement of an inflatable penile prosthesis. The pros and cons of all modalities were discussed at length. Pamphlet was given to the patient involving those treatment options and explained in further detail. I discussed if he would like to go further than the PDE 5 inhibitors that he see branch customer service representative prior to starting any of those options and can start/schedule at that time. We also discussed the new gainswave versus urogold in what that intels. Also discussed pending insurance/costs coverage. Patient can discuss further with scheduling staff if needed. The plan is to have patient stop sildenafil, and start cialis 20 mg , PRN. Side effects reviewed. We discussed risks vs benefits on testosterone supplementation especially exterminator termite supplementation including close surveillance and follow up with repeat lab. Will plan for patient to return care in 3-4 months once starting supplementation and for reevaluation with labs to be done prior to scheduled visit. I will call patient with these updated lab results that he will gain tomorrow AM. Patient now understands the importance of appropriate diet and exercise regimen. He will return care sooner if any questions or concerns arise. All questions that were asked, were answered, and he is satisfied with this plan. Plan Of Treatment Pending Test Test Name Order Date TESTOSTERONE, FREE, BIOAVAILABLE AND TOT [place], [place] ([id number]) 02/02/2024 Estradiol Level 02/23/2024 Testosterone Total 02/23/2024 Testosterone Total 02/02/2024 PSA-Diagnostic 02/23/2024 Insurance Providers Payer Name Payer Address Payer Phone Subscriber Number Group Number Insured Name Patient Relationship to Insured Coverage Start Date Coverage End Date [employer] Medicare Replacement [address] [address] [place], [place] [id number] Jonny Lewis Self - patient is the insured Medical (General) History Medical History History ICD Code anxiety depression high cholesterol ED Surgical History Surgery Date(Month/Year) ACDF Hospitalization History Reason Date(Month/Year) see above
--- OUTSIDE RECORDS SUMMARY | 2024-11-06 15:04 | XMS_ITS | Encounter Summary ---
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
--- OUTSIDE RECORDS SUMMARY | 2024-11-06 15:04 | XMS_ITS | Encounter Summary ---
Author Organization [facility] Address [address] [place] [address] Care Team Providers Care Wet Washer Machine Name Role Phone Taurus Causey DO Primary Care Provide r Encounter Details Date Type Department Care Team (Latest Contact Info) Description 03/20/2000 Outpatient Historical [facility] Frank Glaser MD [address] [place] [address] Brachial neuritis or radiculitis NOS (Primary Dx); Cervical spondylosis; Cervical disc displacmnt; Cervicalgia Social History Tobacco Use Types Packs/Day Years Used Date Smoking Tobacco: Never Assessed Sex and Gender Information Value Date Recorded Sex Assigned at Not on file Legal 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 Gender Identity Not on file Sexual Orientation Not on file documented as of this encounter Plan of Treatment Not on file documented as of this encounter Visit Diagnoses Diagnosis Brachial neuritis or radiculitis NOS- Primary Brachial neuritis or radiculitis nos Cervical spondylosis Cervical spondylosis without myelopathy 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
--- OUTSIDE RECORDS SUMMARY | 2024-11-06 15:04 | XMS_ITS | Encounter Summary ---
Author Organization [facility] Address [address] [place] [address] Care Team Providers Care Certified Physician'S Assistant Name Role Phone Taurus Causey DO Primary Care Provide r Encounter Details Date Type Department Care Team (Latest Contact Info) Description 03/03/2000 Outpatient Historical [facility] Frank Glaser MD [address] [place] [address] Brachial neuritis or radiculitis NOS (Primary Dx); Cervical spondylosis; Cervicalgia Social History Tobacco Use Types Packs/Day Years Used Date Smoking Tobacco: Never Assessed Sex and Gender Information Value Date Recorded Sex Assigned at Not on file 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 Gender Identity Not on file Sexual Orientation Not on file documented as of this encounter Plan of Treatment Not on file documented as of this encounter Visit Diagnoses Diagnosis Brachial neuritis or radiculitis NOS- Primary Brachial neuritis or radiculitis nos Cervical spondylosis Cervical spondylosis without myelopathy Cervicalgia documented in this encounter Care Teams Certified Physician'S Assistant Relationship Specialty Start Date End Date Taurus Causey DO [address] [facility] [address] [place] [address] PCP - General Internal Medicine 12/01/18 documented as of this encounter
--- OUTSIDE RECORDS SUMMARY | 2024-11-06 15:04 | XMS_ITS | Clinical Summary ---
Author Organization [facility] Address [address] [facility] [place] [address] Care Team Providers Care Tele Grout Sewer Line Repairer Name Role Phone CauseyTaurus yates Gumaro Primary Care Provide r Allergies Active Allergy Reactions Criticality Noted Date Comments Penicillins Anaphylaxis High 12/01/2018 Medications atorvastatin (LIPITOR) 40 mg tablet Take 40 mg by mouth daily with supper. Active omeprazole (PriLOSEC) 20 mg Capsule, Delayed Release(E.C.) Take 20 mg by mouth daily. Active methadone (DOLOPHINE) 10 mg Tablet Take 10 mg by mouth every 12 hours. Active aspirin (RENETTA) 325 mg tablet Take 325 mg by mouth daily. Active acetaminophen (TYLENOL) 500 mg tablet Take 500 mg by mouth every 6 hours as needed. Active lisinopril (PRINIVIL) 20 mg tablet Take 20 mg by mouth daily. Active acetaminophen/di phenhydramine (TYLENOL PM ORAL) Take by mouth. Active venlafaxine (EFFEXOR) 75 mg tablet Take 75 mg by mouth 3 times daily. Active latanoprost (XALATAN) 0.005 % solution 1 Drop daily at bedtime. Active polyvinyl alcohol (LIQUIFILM TEARS) 1.4 % solution 1 Drop PRN for Discomfort. 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 Gender Identity Not on file Sexual Orientation Not on file Last Filed Vital Signs Vital Sign Reading Time Taken Comments Blood Pressure 96/58 11/21/2019 3:02 PM CDT Pulse 78 12/21/2018 3:00 PM CDT Temperature 36.6 C (97.9 F) 12/21/2018 3:00 PM CDT Respiratory Rate 16 12/21/2018 2:50 PM CDT Oxygen Saturation 92% 12/21/2018 3:00 PM CDT Inhaled Oxygen Concentration - - Weight 95.7 [...] series) 07/09/2022 INFLUENZA VACCINE (#1) 2024 Insurance [employer] [id number] HMO Advance Directives For more information, please contact: [phone] * Full Code (Latest Code Status on File) Date Activated Date Inactivated Comments 12/21/2018 11:16 AM 12/22/2018 2:16 AM Care Teams Tele Grout Sewer Line Repairer Relationship Specialty Start Date End Date Taurus Causey DO [address] [place] [id number] PCP - General Internal Medicine 12/01/18
--- OUTSIDE RECORDS SUMMARY | 2024-11-06 15:05 | XMS_ITS | Encounter Summary ---
Author Organization [facility] Address [address] [place] [address] Care Team Providers Care Ladderman Name Role Phone Taurus Causey DO Primary Care Provide r Encounter Details Date Type Department Care Team (Latest Contact Info) Description 06/16/2000 Outpatient Historical [facility] Frank Glaser MD [address] [place] [address] Cervicalgia (Primary Dx); Cervical disc displacmnt; Brachial neuritis or radiculitis NOS Social History Tobacco Use Types Packs/Day Years Used Date Smoking Tobacco: Never Assessed Sex and Gender Information Value Date Recorded Sex Assigned at Not on file Legal Sex Male 3:08 AM SLASHER TENDER Gender Identity Not on file Sexual Orientation Not on file documented as of this encounter Plan of Treatment Not on file documented as of this encounter Visit Diagnoses Diagnosis Cervicalgia- Primary 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
--- OUTSIDE RECORDS SUMMARY | 2024-11-06 15:05 | XMS_ITS | Encounter Summary ---
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
--- OUTSIDE RECORDS SUMMARY | 2024-11-06 15:05 | XMS_ITS | Encounter Summary ---
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
--- OUTSIDE RECORDS SUMMARY | 2024-11-06 15:05 | XMS_ITS | Encounter Summary ---
Author Organization [facility] Address [address] [place] [address] Care Team Providers Care Electrical Discharge Machine Operator Name Role Phone Taurus Causey DO Primary Care Provide r Encounter Details Date Type Department Care Team (Latest Contact Info) Description 05/15/2000 Outpatient Historical [facility] Frank Glaser MD [address] [place] [address] Backache, unspecified (Primary Dx); Cervicalgia; Cervical spondylosis Social History Tobacco Use Types Packs/Day Years Used Date Smoking Tobacco: Never Assessed Sex and Gender Information Value Date Recorded Sex Assigned at Not on file 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
--- OUTSIDE RECORDS SUMMARY | 2024-11-06 15:05 | XMS_ITS | Encounter Summary ---
Author Organization [facility] Address [address] [place] [address] Care Team Providers Care Furnace Repair Mechanic Name Role Phone Taurus Causey DO Primary Care Provide r Encounter Details Date Type Department Care Team (Latest Contact Info) Description 07/28/2000 Outpatient Historical [facility] Frank Glaser MD [address] [place] [address] Cervicalgia (Primary Dx); Cervical disc displacmnt; Cervical spondylosis; Degeneration of cervical intervertebral disc Social History Tobacco Use Types Packs/Day Years Used Date Smoking Tobacco: Never Assessed Sex and Gender Information Value Date Recorded Sex Assigned at Not on file 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 Gender Identity Not on file Sexual Orientation Not on file documented as of this encounter Plan of Treatment Not on file documented as of this encounter Visit Diagnoses Diagnosis Cervicalgia- Primary Cervical disc 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
--- OUTSIDE RECORDS SUMMARY | 2024-11-06 15:05 | XMS_ITS | Encounter Summary ---
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
--- OUTSIDE RECORDS SUMMARY | 2024-11-06 15:05 | XMS_ITS | Encounter Summary ---
Author Organization [facility] Address [address] [place] [address] Attn: [place] [address] Care Team Providers Care Microsoft Bi Developer Name Role Phone Taurus Causey DO Primary Care Provide r Encounter Details Date Type Department Care Team (Late st Contact Info) Description 03/20/2000 Outpatient Historical Frank Glaser MD [address] [place] [address] Social History Tobacco Use Types Packs/Day Years Used Date Smoking Tobacco: Never Assessed Sex and Gender Information Value Date Recorded Sex Assigned at Not on file Legal Sex Male 3:08 AM PR INTERN Gender Identity Not on file Sexual Orientation Not on file documented as of this encounter Plan of Treatment Not on file documented as of this encounter Visit Diagnoses Not on filedocumented in this encounter Care Teams Microsoft Bi Developer Relationship Specialty Start Date End Date Taurus Causey DO [address] [facility] [place] [address] PCP - General Internal Medicine 12/01/18 documented as of this encounter
[2024-11-06 15:12] LABS: Hematocrit 35.2 % (37-53); Hemoglobin 11.20 g/dL (11.27-16.99); Mean Corpuscular HGB Conc 31.8 g/dL (30-55); Mean Corpuscular Hemoglobin 30.2 pg (27-33); Mean Corpuscular Volume 94.9 fl (82-101); Nucleated Red Blood Cells % 0 %; Platelet Count 164 10^3/cmm (157-399); Red Blood Count 3.71 10^6/uL (3.85-5.65); White Blood Count 8.88 10^3/uL (3.29-11.43)
[2024-11-06 15:21] LABS: INR 0.97 (0.8-1.2); Prothrombin Time 13.60 SECONDS (12.1-14.9)
[2024-11-06 15:30] VITALS: BP 119/64; PULSE 80; RESP 13; O2SAT 85
[2024-11-06 15:40] LABS: Alanine Aminotransferase 8 U/L (0-41); Albumin Level 3.6 g/dL (3.5-5.2); Alkaline Phosphatase 71 U/L (40-130); Anion Gap 13.3 (5-19); Aspartate Amino Transferase 14 U/L (0-40); Blood Urea Nitrogen 16 mg/dL (8-23); Calcium 8.4 mg/dL (8.5-10.5); Carbon Dioxide 26 mmol/L (22-29); Chloride 100 mmol/L (98-107); Creatinine Clr Calc Pharmacy 68.1090; Globulin 3.0 g/dL (1.3-4.6); Glucose 112 mg/dL (65-115); Lipase 12 U/L (13-60); Magnesium 1.7 mg/dL (1.7-2.3); Osmolality Calculated 282 mOsm/kg (285-295); Potassium 4.3 mmol/L (3.5-5.1); Sodium 135 mmol/L (136-145); Thyroid Stimulating Hormone 2.52 uIU/mL (0.27-4.20); Total Protein 6.6 g/dL (6.6-8.7)
[2024-11-06 16:00] VITALS: BP 134/66; PULSE 79; RESP 19; O2SAT 94
[2024-11-06 16:32] VITALS: BP 169/107; PULSE 78; RESP 21; O2SAT 98
[2024-11-06 16:41] LABS: Glucose Urine UA Negative (Normal); Nitrate Urine Negative (Negative); Specific Gravity, Urine 1.020 (1.005-1.030)
[2024-11-06 16:43] LABS: Add Urine Microscopic? YES
[2024-11-06 17:00] VITALS: BP 157/72; PULSE 74; RESP 18; O2SAT 97
[2024-11-06 17:02] LABS: UA Slide Review UA Slide Review Perf
[2024-11-06 18:45] VITALS: BP 156/70; PULSE 71; O2SAT 99
== END 2024-11-06 18:46 | disposition home or self-care (01) ==
PROVIDERS: Emergency Provider Emergency Medicine; PCP Family Medicine
DX: R53.1 Weakness (principal)
CPT/HCPCS: 70450; 71045; 80053; 81001; 83690; 83735; 84443; 85025; 85610; 96361; 96374; 99285; J1885; J7030